=== PATIENT | female | born 1955 | race Caucasian/White ===

== ENCOUNTER 2020-06-15 13:24 | Outpatient (REF) | payer MEDICARE, MEDICAID, SELFPAY | END 2020-06-15 13:25 | disposition home or self-care (01) | LOC: HO.HMGCLDS 13:24 | PROVIDERS: Visit Provider Internal Medicine | DX: Z20.822 Contact with and (suspected) exposure to COVID-19 (principal) | CPT/HCPCS: C9803; U0003; U0005 ==

== ENCOUNTER 2020-08-13 16:14 | Observation (INO) | payer MEDICARE, MEDICAID, SELFPAY ==
--- NOTE | ~2020-08-13 | MR_ITS ---
EXAMINATION: MR BRAIN WITHOUT AND WITH CONTRAST CLINICAL INFORMATION: Evaluation for abnormal gait. History of brain cancer. COMPARISON: Head CT August 13, 2020. Brain MRI July 09, 2015. TECHNIQUE: Multiplanar, multisequence imaging of the brain was performed before and after the intravenous administration of 7 mL of Gadavist. FINDINGS: There is redemonstration of postoperative findings of left pterional craniotomy for extra-axial mass resection. A 1.1 cm homogeneously enhancing extra-axial mass is seen subjacent to the craniotomy along the left inferior temporal convexity compatible with residual/recurrent tumor at this locale, best seen on series 9 image 11/30. T2/FLAIR hyperintensity within the left frontal lobe, operculum, and temporal lobes compatible with encephalomalacia and gliosis. There is mild ex vacuo dilatation of the left lateral ventricle. There is no acute infarction, hemorrhage, or extra-axial fluid collection. Developmental venous anomalies are seen in the right inferior frontal lobe and in the left posterior temporal lobe. No hydrocephalus is seen. The major arterial flow voids are preserved at the skull base. The orbital contents appear normal. Mild paranasal sinus mucosal thickening is noted. MR/MR head/brain wo/w con IMPRESSION: Postoperative findings of left pterional craniotomy for reported tumor resection. A 1.1 cm homogeneously enhancing lesion is seen along the craniotomy at the left temporal convexity compatible with residual/recurrent meningioma. No acute intracranial abnormality is seen.
--- NOTE | ~2020-08-13 | CT_ITS ---
EXAMINATION: CT HEAD WITHOUT CONTRAST CLINICAL INFORMATION: History of brain tumor. Headache, dizziness. COMPARISON: 09/03/2018 TECHNIQUE: Contiguous axial imaging was performed from the skull base to vertex without intravenous administration of contrast. This CT examination was performed using dose optimization techniques as appropriate, variously including the following: *Automated exposure control. *Adjustment of mA and/or kV according to patient size (this includes techniques or standardized protocols for targeted exams where dose is matched to indication/reason for exam; i.e. extremities or head). *Use of iterative reconstruction technique. DLP: 736 mGy-cm FINDINGS: Redemonstrated is prior left frontal craniotomy, with encephalomalacia in the left frontotemporal lobes, status post previous tumor resection. Redemonstrated is expected dilatation of the left lateral ventricle. No evidence of acute intracranial hemorrhage. No extra-axial fluid collections identified. No territorial infarction. No abnormal mass effect or midline shift is seen. Kuzo-rs-[id number] matter differentiation is otherwise well preserved. No evidence of hydrocephalus. The mastoid air cells and visualized portions of the paranasal sinuses are well aerated. CT/CT head/brain wo con IMPRESSION: 1. Postsurgical changes with encephalomalacia from prior tumor resection in the left frontotemporal lobes. 2. No evidence of acute intracranial hemorrhage or territorial infarction.
--- NOTE | ~2020-08-13 | XR_ITS ---
EXAMINATION: CHEST 2 VIEWS CLINICAL INFORMATION: l sided cp . COMPARISON: 10/03/2011. TECHNIQUE: PA and lateral views of the chest obtained. FINDINGS: The lungs are hyperexpanded. No focal infiltrate, effusion, edema, or pneumothorax. Cardiac and mediastinal silhouettes are within normal limits for technique. No acute bony abnormality seen XR/XR chest 2V IMPRESSION: No evidence of acute disease compared to 10/03/2011
[2020-08-13 16:22] VITALS: BP 153/53; PULSE 65; RESP 16; TEMP 36.5; O2SAT 96; BMI 27.3
[2020-08-13 18:00] VITALS: BP 166/70; PULSE 61; RESP 14; O2SAT 99
--- NOTE | 2020-08-13 18:15 | PC.NURSE ---
Per son, pt was diagnosed with a brain tumor in 2016 which was removed here. Since then, she has been seeing a neurologist with yearly CT scans. Pt was unable to see the neurologist during due to restrictions so has not had a CT scan for 2 years. Pt developed a headache with difficulty walking/balance issues and difficulty finding her words over this weekend. Pt was able to make an appointment with her neurologist and neurosurgeon for this upcoming thursday and but today the pain and disorientation was increasing in intensity and therefore presents to the ED today with 9/10 pain in her left temporal area.
--- NOTE | 2020-08-13 18:32 | ECG_ITS ---
Test Reason : left sided cp Blood Pressure : / mmHG Vent. Rate : 055 BPM Atrial Rate : 055 BPM P-R Int : 140 ms QRS Dur : 080 ms QT Int : 434 ms P-R-T Axes : 008 081 043 degrees QTc Int : 415 ms Sinus bradycardia Otherwise normal ECG When compared with ECG of 03-OCT-2011 20:50, No significant change was found Referred By: Mila Hernandez Electronically Signed By:PRANAV ELLIS MD
[2020-08-13 18:58] LABS: MANUAL DIFF FLAG NO
[2020-08-13] MEDS: Morphine Sulfate 2 MG/ML CARTRIDGE IVPUSH (19:01)
[2020-08-13 19:08] LABS: Basophils Percent Auto 0.2 % (0-2); Eosinophils Absolute Auto 0.1 X10*3/uL (0.0-0.4); Eosinophils Percent Auto 0.9 % (0-4); Hematocrit 39.5 % (37-47); Hemoglobin 12.8 g/dl (12.0-16.0); Imm Gran Abs Auto 0.06 X10*3/uL (0.00-0.03); Imm Gran Pct Auto 0.9 % (0.0-0.4); Lymphocytes Absolute Auto 1.7 X10*3/uL (1.2-4.9); Lymphocytes Percent Auto 25.3 % (20-40); Mean Corpuscular HGB Conc 32.4 g/dl (31.0-35.0); Mean Corpuscular Volume 95.6 fL (80-98); Mean Platelet Volume 10.1 fL (9.4-12.3); Monocytes Absolute Auto 0.7 X10*3/uL (0.1-1.2); Monocytes Percent Auto 11.4 % (2-11); Neutrophils Percent Auto 61.3 % (45-73); Platelet Count 181 X10*3/uL (160-400); Red Blood Count 4.13 X10*6/uL (4.20-5.50); White Blood Count 6.5 X10*3/uL (4.8-10.8)
[2020-08-13 19:15] LABS: Glucose Urine UA NEG (NEG); Leukocyte Esterase Urine NEG (NEG); Nitrite Urine NEG (NEG); Specific Gravity - Urine <= 1.005 (1.005-1.025); Urine Blood NEG (NEG); Urine Ketones NEG (NEG); Urine Protein NEG (NEG-TRACE)
[2020-08-13 19:16] LABS: Appearance Urine CLEAR; Color Urine YELLOW
[2020-08-13 19:30] LABS: Anion Gap 10 (12-20); Blood Urea Nitrogen 11 mg/dL (9-16); Calcium 8.7 mg/dL (8.4-10.2); Carbon Dioxide 27 mmol/L (22-29); Chloride 109 mmol/L (96-108); Creatinine Clr Calc Pharmacy 66.4; Estimated Glomerular Filt Rate > 60; Glucose Random 87 mg/dL (60-115); Magnesium 2.3 mg/dL (1.6-2.6); Potassium 4.4 mmol/L (3.3-5.1); Sodium 142 mmol/L (135-145)
[2020-08-13 19:37] LABS: Troponin-I High Sensitivity < 3.5 ng/L (<3.5-17.0)
[2020-08-13 20:00] VITALS: BP 147/51; PULSE 99; RESP 14; O2SAT 99
--- NOTE | 2020-08-13 20:00 | ED_ITS ---
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 Bautista, rheumatoid arthritis, fibromyalgia here with complaints of headache intermittent for the last month. Her son who provides most of the history for the patient the patient has been followed by both Neurology and Neurosurgery yearly for CT scan. However, last year d/t COVID patient was in [place] and unable to leave d/t the borders being closed. Therefore she was not seen last year and did not have the CT scan. They have the specialist and they have an appointment on Thursday with Dr. Casey and an appointment on with Dr. Bautista. The pain has been getting worse in the last week. The son does tell me that she has been prescribed at amitriptyline for similar pain however ran out of the medication while she was in [place]. In addition, in the last week the patient has had an unsteady gait, been forgetful and confused at times and the son feels the patient's speech is slurred. She is also complaining of some left breast discomfort which she has had for quite some time. She has an upcoming mammogram in September for evaluation. No shortness of breath, cough, fevers, chills. No vision changes, dizziness. Patient is arabic speaking only and family wishes to interpret for her. Offered custom applicator but declined. Related Data Allergies Allergy/AdvReac Type Severity Reaction Status Date / Time leflunomide [From ARAVA] Allergy Unknown UNK Unverified 11/24/19 18:21 Review of Systems Review of Systems: Yes all other systems are reviewed and are negative Constitutional: Constitutional: Reports no additional constitutional complaints, Denies body ache(s), Denies chills, Denies fever(s), Reports headache(s) and Denies weakness Eyes: Eyes: Reports no additional eye complaints and Denies change in vision ENT: Reports system reviewed and no additional complaints, except as documented, Denies dizziness, Reports headache(s), Denies nasal congestion, Denies nasal discharge and Denies neck pain Cardiovascular: Cardiovascular: Reports no additional cardiovascular complaints, Denies chest pain, Denies leg edema and Denies dyspnea Comments: +breast pain Respiratory: Respiratory: Reports no additional respiratory complaints, Denies cough and Denies dyspnea Gastrointestinal: Gastrointestinal: Reports no additional gastrointestinal complaints, Denies abdominal pain, Denies diarrhea, Denies nausea and Denies vomiting Genitourinary: Genitourinary: Reports no additional female genitourinary complaints and Denies urinary incontinence Musculoskeletal: Musculoskeletal: Reports no additional musculoskeletal complaints, Reports abnormal gait, Denies back pain, Denies arthralgias, Denies joint swelling, Denies neck pain, Denies numbness and Denies tingling Integumentary/Breasts: Skin/Breast: Reports system reviewed and no additional complaints, except as docu and Denies rash Neurologic: Reports system reviewed and no additional complaints, except as documented, Reports abnormal gait, Denies dizziness, Reports headache(s), Denies numbness, Denies tingling and Denies weakness PMFSH Past Medical History Attestation statement: The following information was validated with the patient. Source: old records reviewed and nursing notes reviewed Medical History Brain tumor Fibromyalgia Rheumatoid arthritis Social History Social History Alcohol intake: current Alcohol intake frequency: holidays/special occasions only Patient Tobacco Use Status: Never used Tobacco Use of substances other than those prescribed or required for medical reasons: No Advance Directives: No Advance Directives Information Provided: Yes Physical Exam Vital Signs: Vital Signs: Last Vital Signs Temp 97.7 F 08/13/20 16:22 Pulse 99 08/13/20 20:00 Resp 14 08/13/20 20:00 BP 147/51 H 08/13/20 20:00 Pulse Ox 99 08/13/20 20:00 Body Mass Index 27.3 Const: General: cooperative, healthy appearing, comfortable and no acute distress Orientation/consciousness: patient oriented x3 Limitations: no limitations HENMT: Head: Yes normal to inspection Ears: hearing grossly normal bilaterally and TM's normal bilaterally General nose exam: Normal external nose present Face and sinus: Yes normal facial exam Mouth: Normal oral and palatal mucosa present Throat: Yes posterior oropharynx normal, Yes tonsils normal and Yes uvula midline Eyes: General: appearance normal, both eyes and all related structures Pupils: Equal, round and reactive pupils present Neck: Neck: Yes normal visual inspection, Yes full ROM, Yes no lymphadenopathy and Yes no meningeal signs Chest: Chest palpation & inspection: normal inspection of the chest and normal palpation of entire chest wall Breast/axilla palpation: normal palpation of the breasts and no axillary lymphadenopathy Resp: Effort & Inspection: normal respiratory effort Auscultation: clear to auscultation bilaterally Cardio: Rate: regular rate Rhythm: regular rhythm Peripheral pulses: Peripheral pulses 2+ throughout GI: Inspection: Yes normal to inspection Palpation (GI): Soft to palpation and nontender Auscultation: normal bowel sounds Back/Spine/Pelvis: Thoracic/Lumbar Spine: thoracic and lumbar spine normal to inspection Skin: General skin exam: no rashes or lesions noted Neuro: General: patient oriented x3, no meningeal signs, no focal motor deficits and normal sensation to monofilament Cranial nerves: Yes CN's II-XII intact bilaterally, Yes Equal, round and reactive pupils present, Yes Bilaterally intact EOM present, Yes Nystagmus not present, Yes Normal facial strength present and Yes Midline tongue present Cognition (Neuro): normal cognition Speech: Other speech findings present (Neuro) (normal speech) Gait exam (Neuro): Ataxic gait present Motor exam (neuro): 5/5 motor strength present throughout Sensory Exam: Normal double simultaneous stimulation for sensation Coordination: dbmlyw-br-[id number] test normal and other (heel to arteaga abnormal. unable to perform in a straight line) Extrem: General: Yes normal to inspection, Yes no pedal edema and Yes no calf tenderness NIH Stroke Scale Internal: Initial- Upon Arrival Time: 18:16 Level of Consciousness: Alert Level of Consciousness Questions: Answers both questions correctly Level of Consciousness Commands: Performs both tasks correctly Best Gaze: Normal Visual: No visual loss Facial Palsy: Normal Motor Arm (Right): No drift Motor Arm (Left): No drift Motor Leg (Right): No drift Motor Leg (Left): No drift Limb Ataxia: Present in two limbs Sensory: Normal Best Language: No aphasia Dysarthia: Normal Extinction and Inattention: No abnormality Score: 2 Course Course Course Narrative: 65 yo female with past medical history of brain tumor s/p [place] [address] Bautista here with intermittent L sided BARNEY x 1 month, now forgetful with confusion per family (?slurred speech per family) and unsteady gait x 1 week. Missed f/u last year with all providers and scheduled CT head d/t being in [place] and unable to leave d/t closed borders. On arrival A&Ox4. I do not appreciate slurred speech but difficult to assess as patient is being interpreted through family. I do appreciate limb ataxia and patient during ambulation trial is very unsteady. NIH 2 in the setting of symptoms >1 week. Not a TPA candidate. Will need CT head to eval for tumor re-occurrence, EKG/CXR/UA/labs to evaluate for additional cause of dizziness. Will provide analgesia for BARNEY. 2029-CT head shows postsurgical changes with post from prior tumor resection. No evidence of intracranial hemorrhage or infarction. No other findings on workup to explain metabolic cause. Will discuss with patient's neurologist to see if further imaging is needed. 2099-call back from Dr. Casey the patient's neurologist. Recommended admission for MRI with and without contrast. Call out to medicine to admit. 2129-Sign out to Dr Bauer who accepted admission of patient. MDM - Altered Mental Status MDM Narrative Medical decision making narrative: Electrolyte abnormality, anemia, ACS, CVA vs ICH vs space occupying lesion. Medical Records Attestation: I reviewed the patient's medical records. Lab Data Attestation: I reviewed the patient's lab results. Result diagrams: 08/13/20 18:54 08/13/20 18:54 Labs: Lab Results 08/13/20 08/13/20 08/13/20 Range/Units 18:54 18:54 18:54 WBC 6.5 (4.8-10.8) X10*3/uL RBC 4.13 L (4.20-5.50) X10*6/uL Hgb 12.8 (12.0-16.0) g/dl Hct 39.5 (37-47) % MCV 95.6 (80-98) fL MCH 31.0 (27.0-33.0) pg MCHC 32.4 (31.0-35.0) g/dl RDW 14.0 (11.0-16.0) % Plt Count 181 (160-400) X10*3/uL MPV 10.1 (9.4-12.3) fL Immature Gran % (Auto) 0.9 H (0.0-0.4) % Neut % (Auto) 61.3 (45-73) % Lymph % (Auto) 25.3 (20-40) % [place] % (Auto) 11.4 H (2-11) % Eos % (Auto) 0.9 (0-4) % Baso % (Auto) 0.2 (0-2) % Lymph # (Auto) 1.7 (1.2-4.9) X10*3/uL [place] # (Auto) 0.7 (0.1-1.2) X10*3/uL Eos # (Auto) 0.1 (0.0-0.4) X10*3/uL Baso # (Auto) 0.0 (0.0-0.2) X10*3/uL Abs Immat Gran (auto) 0.06 H (0.00-0.03) X10*3/uL Absolute Neuts (auto) 4.0 (2.0-8.3) X10*3/uL Absolute Nucleated RBC 0.000 (0.0-0.012) X10*3/uL Nucleated RBC % (auto) 0.0 (0.0-0.2) /100WBC Sodium 142 (135-145) mmol/L Potassium 4.4 (3.3-5.1) mmol/L Chloride 109 H (96-108) mmol/L Carbon Dioxide 27 (22-29) mmol/L Anion Gap 10 L (12-20) BUN 11 (9-16) mg/dL Creatinine 0.83 (0.5-1.4) mg/dL Estim Creat Clear Calc 66.4 Estimated GFR > 60 Random Glucose 87 (60-115) mg/dL Calcium 8.7 (8.4-10.2) mg/dL Magnesium 2.3 (1.6-2.6) mg/dL Troponin I High Sens < 3.5 (<3.5-17.0) ng/L Urine Color Urine Appearance Urine pH (5.0-8.0) Ur Specific [place] (1.005-1.025) Urine Protein (NEG-TRACE) MG/DL Urine Glucose (UA) (NEG) MG/DL Urine Ketones (NEG) MG/DL Urine Blood (NEG) Urine Nitrite (NEG) Ur Leukocyte Esterase (NEG) 08/13/20 Range/Units 19:02 WBC (4.8-10.8) X10*3/uL RBC (4.20-5.50) X10*6/uL Hgb (12.0-16.0) g/dl Hct (37-47) % MCV (80-98) fL MCH (27.0-33.0) pg MCHC (31.0-35.0) g/dl RDW (11.0-16.0) % Plt Count (160-400) X10*3/uL MPV (9.4-12.3) fL Immature Gran % (Auto) (0.0-0.4) % Neut % (Auto) (45-73) % Lymph % (Auto) (20-40) % [place] % (Auto) (2-11) % Eos % (Auto) (0-4) % Baso % (Auto) (0-2) % Lymph # (Auto) (1.2-4.9) X10*3/uL [place] # (Auto) (0.1-1.2) X10*3/uL Eos # (Auto) (0.0-0.4) X10*3/uL Baso # (Auto) (0.0-0.2) X10*3/uL Abs Immat Gran (auto) (0.00-0.03) X10*3/uL Absolute Neuts (auto) (2.0-8.3) X10*3/uL Absolute Nucleated RBC (0.0-0.012) X10*3/uL Nucleated RBC % (auto) (0.0-0.2) /100WBC Sodium (135-145) mmol/L Potassium (3.3-5.1) mmol/L Chloride (96-108) mmol/L Carbon Dioxide (22-29) mmol/L Anion Gap (12-20) BUN (9-16) mg/dL Creatinine (0.5-1.4) mg/dL Estim Creat Clear Calc Estimated GFR Random Glucose (60-115) mg/dL Calcium (8.4-10.2) mg/dL Magnesium (1.6-2.6) mg/dL Troponin I High Sens (<3.5-17.0) ng/L Urine Color YELLOW Urine Appearance CLEAR Urine pH 6.0 (5.0-8.0) Ur Specific [place] <= 1.005 (1.005-1.025) Urine Protein NEG (NEG-TRACE) MG/DL Urine Glucose (UA) NEG (NEG) MG/DL Urine Ketones NEG (NEG) MG/DL Urine Blood NEG (NEG) Urine Nitrite NEG (NEG) Ur Leukocyte Esterase NEG (NEG) Imaging Data CT scan - head: Attestation: I personally reviewed and interpreted this imaging study as follows: Radiologist's impression: EXAMINATION: CT HEAD WITHOUT CONTRAST CLINICAL INFORMATION: History of brain tumor. Headache, dizziness. COMPARISON: 09/03/2018 TECHNIQUE: Contiguous axial imaging was performed from the skull base to vertex without intravenous administration of contrast. This CT examination was performed using dose optimization techniques as appropriate, variously including the following: *Automated exposure control. *Adjustment of mA and/or kV according to patient size (this includes techniques or standardized protocols for targeted exams where dose is matched to indication/reason for exam; i.e. extremities or head). *Use of iterative reconstruction technique. DLP: 736 mGy-cm FINDINGS: Redemonstrated is prior left frontal craniotomy, with encephalomalacia in the left frontotemporal lobes, status post previous tumor resection. Redemonstrated is expected dilatation of the left lateral ventricle. No evidence of acute intracranial hemorrhage. No extra-axial fluid collections identified. No territorial infarction. No abnormal mass effect or midline shift is seen. Unic-wx-fwlwx matter differentiation is otherwise well preserved. No evidence of hydrocephalus. The mastoid air cells and visualized portions of the paranasal sinuses are well aerated. CT/CT head/brain wo con IMPRESSION: 1. Postsurgical changes with encephalomalacia from prior tumor resection in the left frontotemporal lobes. 2. No evidence of acute intracranial hemorrhage or territorial infarction. Chest x-ray: Attestation: I personally reviewed and interpreted this imaging study as follows: Radiologist's impression: [address] [id number] ReportSigned Patient: Vanessa PierceMR#: [id number]: [id number]:[id number]/Sex: 65 / FADM Date: 08/13/20Loc: [facility].EDAttending Dr: Ordering Physician: MILA CONRAD NP Date of Service: 08/13/20 Procedure(s): XR chest 2V Accession Number(s): [id number] cc: MILA CONRAD NP~ EXAMINATION: CHEST 2 VIEWS CLINICAL INFORMATION: l sided cp . COMPARISON: 10/03/2011. TECHNIQUE: PA and lateral views of the chest obtained. FINDINGS: The lungs are hyperexpanded. No focal infiltrate, effusion, edema, or pneumothorax. Cardiac and mediastinal silhouettes are within normal limits for technique. No acute bony abnormality seen XR/XR chest 2V IMPRESSION: No evidence of acute disease compared to 10/03/2011 ECG Data ECG #1: Attestation: I personally reviewed and interpreted this ECG as follows: ECG interpretation date: 08/13/20 ECG interpretation time: 19:12 Interpretation: Sinus bradycardia with a rate of 55, normal [place], normal QRS, normal QTC Discharge Plan Discharge Clinical Impression: Ataxia Patient Disposition: Admitted As Inpatient
--- NOTE | 2020-08-13 21:36 | PM.IMHP ---
History of Present Illness Date of Service: 08/13/20 Chief Complaint: Unsteady gait 65-year-old female with a past medical history of brain tumor, fibromyalgia, rheumatoid arthritis, history of brain tumor resection in [address] scans surveillance; presents to the hospital with chief complaint of unsteady gait. Patient reports that over the past 1 month she has been having intermittent episodes of headaches, denies any blurry visions. Denies any fever chills cough. Patient reports that she has been having unsteady gait over the past 1 week. Family also reported that her speech is slightly abnormal. Patient also become more forgetful over the past 1 week. Denies any falls. Denies any head strike. Denies any nausea vomiting or diarrhea. Denies any difficulty swallowing. Review of all other systems is negative except mentioned above ER course: Per ER team patient 0 noted to have unsteady gait, abnormal jwmgsf-wv-vgoi and yevx-ap-jdvj test. CT head showed no acute findings, chronic postsurgical changes noticed. EKG nonischemic. Troponin negative. ER team spoke to Dr. Porter from Neurology who recommended admission and MRI brain in the morning. [facility] Medical History Brain tumor Fibromyalgia Rheumatoid arthritis Social History Household Members: Children Household Members Other:: daughter Housing: Condominium Do you presently have visiting nurse or other home services: No Alcohol intake: current Alcohol intake frequency: holidays/special occasions only Patient Tobacco Use Status: Never used Tobacco service: No Meds Allergies Allergy/AdvReac Type Severity Reaction Status Date / Time leflunomide [From ARAVA] Allergy Unknown UNK Verified 08/14/20 00:58 Active Medications: Current Medications Generic Name Dose Route Start Last Admin Trade Name Freq PRN Reason Stop Dose Admin Acetaminophen 650 mg 08/13/20 21:28 Acetaminophen 325 Mg Tablet PO Q6H PRN Pain, Mild (Pain Scale 1-3) Aspirin 81 mg 08/14/20 09:00 Aspirin Enteric Coated 81 Mg Tablet. PO DAILY NAIDA Dextrose/Sodium Chloride 1,000 mls @ 100 mls/hr 08/13/20 21:30 D51/2ns IVCONT .Q10H NAIDA Magnesium Hydroxide 30 ml 08/13/20 21:28 Milk Of Magnesia 30 Ml Oral.Susp PO DAILY PRN Constipation Pharmacy Consult 1 each 08/13/20 21:15 Consult Rx Perform Med Rec MISCELLANE ONCE PRN Consult order Sodium Chloride 3 ml 08/14/20 00:00 0.9 % Sodium Chloride Flush 3 Ml Syringe IVFLUSH QSHIFT [facility] Home Medications Medication Instructions Recorded Confirmed Last Taken Type Enbrel SureClick 1 mg SUBCUT Q2W 08/13/20 08/13/20 08/06/20 History Systane (propylene glycol) 1 drp OPHTHALMIC (EYE) Q1H PRN 08/13/20 08/13/20 08/13/20 History estradiol 1 g VAGINAL 3XW 08/13/20 08/13/20 08/12/20 History folic acid 0.8 mg PO DAILY 08/13/20 08/13/20 08/12/20 History gabapentin 200 mg PO BEDTIME 08/13/20 08/13/20 08/12/20 History methotrexate sodium (PF) 25 mg SUBCUT Q7D 08/13/20 08/14/20 08/06/20 History prednisone 5 - 10 mg PO DAILY PRN 08/13/20 08/13/20 08/11/20 History Physical Exam Vital Signs and Narrative: Vital Signs: Last Vital Signs Temp 97.7 F 08/13/20 16:22 Pulse 99 08/13/20 20:00 Resp 14 08/13/20 20:00 BP 147/51 H 08/13/20 20:00 Pulse Ox 99 08/13/20 20:00 Body Mass Index 27.3 Gen: Appears be in no acute distress HEENT: NCAT, Moist mucosa. Pulmonary: Vesicular breath sounds, fair air entry CVS: Normal S1-S2 Abdomen: BS+, Soft, Nontender Extremities: Warm well perfused Neuro: Alert and awake.; moves all extremities equally. Strength and sensations intact. Unable to perform dvop-zi-ofsr test well. Slow yppjap-hg-awvq test. Results Labs CBC and Chem 7: 08/14/20 05:43 08/15/20 05:31 Labs: Laboratory Results - last 24 hr 08/13/20 08/13/20 08/13/20 18:54 18:54 18:54 MCV 95.6 MCH 31.0 MCHC 32.4 RDW 14.0 Plt Count 181 MPV 10.1 Immature Gran % (Auto) 0.9 H Neut % (Auto) 61.3 Lymph % (Auto) 25.3 [place] % (Auto) 11.4 H Eos % (Auto) 0.9 Baso % (Auto) 0.2 Lymph # (Auto) 1.7 [place] # (Auto) 0.7 Eos # (Auto) 0.1 Baso # (Auto) 0.0 Abs Immat Gran (auto) 0.06 H Absolute Neuts (auto) 4.0 Absolute Nucleated RBC 0.000 Nucleated RBC % (auto) 0.0 Anion Gap 10 L Estim Creat Clear Calc 66.4 Estimated GFR > 60 Random Glucose 87 Calcium 8.7 Magnesium 2.3 Troponin I High Sens < 3.5 Urine Color Urine Appearance Urine pH Ur Specific [place] Urine Protein Urine Glucose (UA) Urine Ketones Urine Blood Urine Nitrite Ur Leukocyte Esterase 08/13/20 19:02 MCV MCH MCHC RDW Plt Count MPV Immature Gran % (Auto) Neut % (Auto) Lymph % (Auto) [place] % (Auto) Eos % (Auto) Baso % (Auto) Lymph # (Auto) [place] # (Auto) Eos # (Auto) Baso # (Auto) Abs Immat Gran (auto) Absolute Neuts (auto) Absolute Nucleated RBC Nucleated RBC % (auto) Anion Gap Estim Creat Clear Calc Estimated GFR Random Glucose Calcium Magnesium Troponin I High Sens Urine Color YELLOW Urine Appearance CLEAR Urine pH 6.0 Ur Specific [place] <= 1.005 Urine Protein NEG Urine Glucose (UA) NEG Urine Ketones NEG Urine Blood NEG Urine Nitrite NEG Ur Leukocyte Esterase NEG Imaging Radiologist's Impressions: Impressions Chest X-Ray 08/13/20 18:32 IMPRESSION: No evidence of acute disease compared to 10/03/[address] 08/13/20 18:32 IMPRESSION: 1. Postsurgical changes with encephalomalacia from prior tumor resection in the left frontotemporal lobes. 2. No evidence of acute intracranial hemorrhage or territorial infarction. Assessment and Plan (1) Ataxia: Status: Acute 65-year-old female with a past medical history of fibromyalgia, rheumatoid arthritis, brain tumor status post resection presented to the hospital with a chief complaint of unsteady gait, slurred speech. Speech is improved. Admitted for further management. Unsteady gait: Impaired rzdy-au-nzxs test. Ataxic gait. CT head with no acute findings. Neurology recommended MRI brain in the morning. Lipid profile, TSH, hemoglobin A1c. Neurology consult Echocardiogram PT/OT Fall precautions Speech and swallow eval Aspirin MRI brain with and without contrast Chest discomfort: Improved. EKG and troponin negative. Follow-up troponin pending. All other chronic conditions, home medications will be continued DVT prophylaxis: SCD boots code status: Full code
[2020-08-13] MEDS: Dextrose 5 % and 0.45 % NaCl 1,000 ML 100 ML IVCONT (22:01)
[2020-08-13 22:06] VITALS: BP 154/55; PULSE 51; RESP 12; O2SAT 98
[2020-08-13 22:30] LABS: COVID-19 Test Negative (Negative)
--- NOTE | 2020-08-13 22:49 | PC.NURSE ---
MRI form filled out and faxed at approximately 2200 and copy placed in paper chart.
--- NOTE | 2020-08-13 23:31 | PC.NURSE ---
Hospitalist at bedside for evaluation of patient
[2020-08-14] VITALS (7 sets, daily range): BP systolic 125–185; BP diastolic 58–70; PULSE 48–59; RESP 16–20; TEMP 36.2–37.1; O2SAT 96–100; BMI 25.1
--- NOTE | 2020-08-14 01:14 | PC.NURSE ---
Pt up to floor at 0030. Initial neuro check reveals equal strength bilat lower extremities supine. Left arm minimally slow to respond/trace weakness. Does report hx of rheumatoid arthritis. Steady gait to bathroom. Pt still reports left sided headache. Passed nursing swallow evaluation. No facial droop. Per family and patient, crushes medications at baseline r/t rheumatoid arthritis. A&Ox4 at this time. Will continue to monitor
[2020-08-14 06:19] LABS: MANUAL DIFF FLAG NO
[2020-08-14 06:26] LABS: Eosinophils Absolute Auto 0.1 X10*3/uL (0.0-0.4); Eosinophils Percent Auto 1.8 % (0-4); Hematocrit 38.2 % (37-47); Hemoglobin 12.2 g/dl (12.0-16.0); Imm Gran Abs Auto 0.02 X10*3/uL (0.00-0.03); Imm Gran Pct Auto 0.5 % (0.0-0.4); Lymphocytes Absolute Auto 0.9 X10*3/uL (1.2-4.9); Mean Corpuscular HGB Conc 31.9 g/dl (31.0-35.0); Mean Corpuscular Hemoglobin 30.7 pg (27.0-33.0); Mean Platelet Volume 10.3 fL (9.4-12.3); Monocytes Absolute Auto 0.5 X10*3/uL (0.1-1.2); Monocytes Percent Auto 13.1 % (2-11); Neutrophils Absolute Auto 2.5 X10*3/uL (2.0-8.3); Neutrophils Percent Auto 62.6 % (45-73); Platelet Count 172 X10*3/uL (160-400); Red Blood Count 3.98 X10*6/uL (4.20-5.50); Red Cell Distribution Width 13.8 % (11.0-16.0)
[2020-08-14] MEDS: Dextrose 5 % and 0.45 % NaCl 1,000 ML 100 ML IVCONT (06:30)
[2020-08-14 06:39] LABS: Estimated Average Glucose 114 mg/dL; Hemoglobin A1c % 5.6 %
[2020-08-14 06:46] LABS: Glucose, Whole Blood 108 mg/dL (60-115)
[2020-08-14 07:04] LABS: Anion Gap 10 (12-20); Blood Urea Nitrogen 7 mg/dL (9-16); Calcium 8.3 mg/dL (8.4-10.2); Carbon Dioxide 27 mmol/L (22-29); Chloride 110 mmol/L (96-108); Creatinine Clr Calc Pharmacy 72.7; Estimated Glomerular Filt Rate > 60; Glucose Random 90 mg/dL (60-115); Magnesium 2.1 mg/dL (1.6-2.6); Potassium 3.6 mmol/L (3.3-5.1); Sodium 143 mmol/L (135-145)
[2020-08-14 07:05] LABS: Cholesterol 159 mg/dL; HDL Cholesterol 47 mg/dL; LDL Cholesterol Calculated 96 mg/dl; Triglycerides 83 mg/dL
[2020-08-14 07:24] LABS: Thyroid Stimulating Hormone 1.22 uIU/mL (0.32-4.0)
[2020-08-14] MEDS: 0.9 % Sodium Chloride Flush 3 ML SYRINGE IVFLUSH ×3 (09:23→23:41)
[2020-08-14] MEDS: Aspirin 81 MG TAB.CHEW PO (09:23)
[2020-08-14] MEDS: Acetaminophen 325 MG TABLET 650 MG PO (09:23)
--- NOTE | 2020-08-14 12:09 | MHC.CM.PN ---
met with pt and family pt lives with braydon daughter son lives near by pt had no servceis prior to admission,pt is recpmmending acute rehab family has chosen [facility] referral will be made
--- NOTE | 2020-08-14 12:28 | MHC.SL.SWA ---
Speech Pathologist Impression: Oralpharyngeal Dysphagia Risk of Aspiration Due to: Dysphasia Diet Status: Downgrade Liquid Consistency and Strategies for Safe Swallow: Liquid Intake Recommendation: [place] Thick Liquid Intake Strategies: Small Sips Solid Food Consistency: Dietary Recommendations: Grnd/Mech Altered (NDD2) Additional Modifications to Solid Foods: Moisten solids with sauces and gravies for ease of mastication. Oral Medication Intake: Crushed with Puree Compensatory Strategies and Precautions to be Taken for Safe Swallow: Sitting Upright (90 deg) Liquids from Cup Small Bites and Sips Alternate Liquids/Solids Supervision While Eating and Drinking for Safe Swallow: Intermittent Supervision Foods to Avoid: Swallowing Recommended Treatments: Compens. Strategy Educat. Recommendation for Speech: Inpatient Speech Therapy Comment: moisten solids with sauces and gravies for ease of mastication. Frequency/Duration: Date Range for Service Req: Timeline to reassess: Tube Mounter Clinican/Clinical Fellow: Yes: Suzanna Weinstein M.A., CF-ELECTRICAL TECH/PROJECT MANAGER Supervisory Statement: I have reviewed and agree with the student/clinical fellow's documentation: Speech Language Pathologist:
--- NOTE | 2020-08-14 14:47 | P.PNIM_ITS ---
Subjective Subjective Date of Service: 08/14/20 Interval History: the patient was seen and evaluated this morning Laying in bed, complaining of headache and feeling dizzy No reported nausea, double vision Denies any fever, chills or shortness of breath No reported other overnight events. Systemic review: No fever, chills but feels generalized weakness No chest pain, palpitation No shortness of breath or coughing No abdominal pain, nausea or vomiting No urinary symptoms No any rash or wounds Physical Exam Vital Signs: Vital Signs: Last Vital Signs Temp 97.6 F 08/14/20 12:00 Pulse 58 08/14/20 12:00 Resp 16 08/14/20 12:00 BP 148/68 H 08/14/20 12:00 Pulse Ox 98 08/14/20 12:00 Body Mass Index 25.1 Const: Other: Constitutional : Alert, oriented, not in distress Neck : Normal inspection, Supple Cardiovascular : RRR, S1 S2, no lower extremity edema Respiratory : Good bilateral air entry, no crackles, wheezes or rhonchi Gastrointestinal: soft, lax, Normal bowel sounds, Non tender Skin : Warm/Dry, No rash Neurological : Alert & oriented x3, No focal deficit, normal cranial nerve examination, good power upper and lower extremities bilaterally, cerebellar exam within normal as no nystagmus but possibly heel to arteaga mildly abnormal. Objective Data Current Medications Generic Name Dose Route Start Last Admin Trade Name Freq PRN Reason Stop Dose Admin Acetaminophen 650 mg 08/13/20 21:28 08/14/20 09:23 Acetaminophen 325 Mg Tablet PO 650 mg Q6H PRN Administration Pain, Mild (Pain Scale 1-3) Artificial Tears 2 drop 08/14/20 14:23 Artificial Tears 15 Ml Drops EYE-BOTH Q4H PRN Dry Eyes Aspirin 81 mg 08/14/20 09:00 08/14/20 09:23 Aspirin 81 Mg Tab.Chew PO 81 mg DAILY NAIDA Administration Gabapentin 200 mg 08/14/20 21:00 Gabapentin 100 Mg Capsule PO BEDTIME NAIDA Magnesium Hydroxide 30 ml 08/13/20 21:28 Milk Of Magnesia 30 Ml Oral.Susp PO DAILY PRN Constipation Methotrexate 25 mg 08/14/20 14:23 Methotrexate Sodium 125 Mg/5 Ml Syringe IM 08/14/20 14:24 ONCE ONE Pharmacy Consult 1 each 08/13/20 21:15 Consult Rx Perform Med Rec MISCELLANE ONCE PRN Consult order Sodium Chloride 3 ml 08/14/20 00:00 08/14/20 09:23 0.9 % Sodium Chloride Flush 3 Ml Syringe IVFLUSH 3 ml QSHIFT [facility] Administration Labs CBC & Chem 7: 08/14/20 05:43 08/14/20 05:43 Assessment and Plan (1) Ataxia: Status: Acute Assessment and Plan: 65-year-old female with a past medical history of fibromyalgia, rheumatoid arthritis, brain tumor status post resection presented to the hospital with a chief complaint of unsteady gait, slurred speech. Speech is improved. Admitted for further management. Unsteady gait Partially abnormal [id number] test which could be contributed to arthritis Reported Ataxic gait CT head with no acute findings MRI showing 1.1 cm homogeneously enhancing lesion seen along the craniotomy at the left temporal convexity compatible with residual/recurrent meningioma. Pending neurology evaluation Lipid profile, TSH, hemoglobin A1c within normal Pending Echocardiogram PT/OT Fall precautions Speech and swallow eval Continue Aspirin Chest discomfort Improved EKG and troponin negative Rheumatoid arthritis To give p.o. methotrexate as IM stat use in the medical floor continue folic acid DVT prophylaxis: SCD boots or or Dispo, patient could be ready to discharge tomorrow, family preferred to take her home with [facility]NA. She is accepted at facility though.
--- NOTE | 2020-08-14 15:25 | MHC.CM.PN ---
pt accepted at [facility] ,family undeceided about taking pt home vs [facility] they will let us know in the am
--- NOTE | 2020-08-14 17:12 | P.CNNE_ITS ---
History of Present Illness Data of Consult Service Date: 08/14/20 Primary Care Provider: Diane Ldad MD HPI Reason for consult: Left-sided headache for 2 months. Dizziness and unsteadiness This is a 65-year-old woman who has recently returned from [place]. She has a past history of for resection of a left frontal meningioma about [address] scan and MRIs have shown postoperative changes and the MRI on this admission shows a residual tumor of 1 cm relatively flat without mass effect. No other abnormalities noted. The patient came in with two-month history of steady headache on the left side of the head which was not relieved by Tylenol, but has subsided. Right now. In the past she was being treated with amitriptyline 10 mg at bedtime, which helped headaches but she's been out of it for over a year. She also gets a little confused and unsteady when she walks. She is currently living with her daughter. She gets dizzy upon walking. There is no vertigo. She has no lateralized weakness or numbness. Review of Systems Eyes: Eyes: Reports no additional eye complaints ENT: Reports system reviewed and no additional complaints, except as documented and Reports Normal hearing present Cardiovascular: Cardiovascular: Reports no additional cardiovascular complaints Respiratory: Respiratory: Reports no additional respiratory complaints Gastrointestinal: Gastrointestinal: Reports no additional gastrointestinal complaints Musculoskeletal: Musculoskeletal: Reports no additional musculoskeletal complaints Integumentary/Breasts: Skin/Breast: Reports system reviewed and no additional complaints, except as docu Neurologic: Reports as per HPI and Reports Normal hearing present Psychiatric: Psychiatric: Reports as per HPI Endocrine: Endocrine: Reports no additional endocrine complaints Hematologic/Lymphatic: Hematologic/Lymphatic: Reports no additional hematologic/lymphatic complaints Allergic/Immunologic: Allergic/Immunologic: Reports no additional allergic/immunologic complaints [facility] Past Medical History Medical History Brain tumor Fibromyalgia Rheumatoid arthritis Social History Social History Household Members: Children Household Members Other:: daughter Housing: Condominium Do you presently have visiting nurse or other home services: No Alcohol intake: current Alcohol intake frequency: holidays/special occasions only Patient Tobacco Use Status: Never used Tobacco service: No Meds Allergies Allergy/AdvReac Type Severity Reaction Status Date / Time leflunomide [From ARAVA] Allergy Unknown UNK Verified 08/14/20 00:58 Active Medications: Current Medications Generic Name Dose Route Start Last Admin Trade Name Freq PRN Reason Stop Dose Admin Acetaminophen 650 mg 08/13/20 21:28 08/14/20 09:23 Acetaminophen 325 Mg Tablet PO 650 mg Q6H PRN Administration Pain, Mild (Pain Scale 1-3) Artificial Tears 2 drop 08/14/20 14:23 Artificial Tears 15 Ml Drops EYE-BOTH Q4H PRN Dry Eyes Aspirin 81 mg 08/14/20 09:00 08/14/20 09:23 Aspirin 81 Mg Tab.Chew PO 81 mg DAILY NAIDA Administration Gabapentin 200 mg 08/14/20 21:00 Gabapentin 100 Mg Capsule PO BEDTIME [facility] Magnesium Hydroxide 30 ml 08/13/20 21:28 Milk Of Magnesia 30 Ml Oral.Susp PO DAILY PRN Constipation Pharmacy Consult 1 each 08/13/20 21:15 Consult Rx Perform Med Rec MISCELLANE ONCE PRN Consult order Sodium Chloride 3 ml 08/14/20 00:00 08/14/20 09:23 0.9 % Sodium Chloride Flush 3 Ml Syringe IVFLUSH 3 ml QSHIFT NAIDA Administration Home Medications Medication Instructions Recorded Confirmed Last Taken Type amitriptyline 10 mg PO BEDTIME 08/13/20 08/13/20 08/12/20 History estradiol 1 g VAGINAL 3XW 08/13/20 08/13/20 08/12/20 History etanercept [Enbrel SureClick] 1 mg SUBCUT Q2W 08/13/20 08/13/20 08/06/20 History folic acid 0.8 mg PO DAILY 08/13/20 08/13/20 08/12/20 History gabapentin 200 mg PO BEDTIME 08/13/20 08/13/20 08/12/20 History methotrexate sodium (PF) 25 mg SUBCUT Q7D 08/13/20 08/14/20 08/06/20 History peg 400-propylene glycol [Systane 1 drp OPHTHALMIC (EYE) Q1H PRN 08/13/20 08/13/20 08/13/20 History (propylene glycol)] prednisone 5 - 10 mg PO DAILY PRN 08/13/20 08/13/20 08/11/20 History Physical Exam Vital Signs: Vital Signs: Last Vital Signs Temp 98.3 F 08/14/20 15:24 Pulse 59 08/14/20 15:24 Resp 18 08/14/20 15:24 BP 128/61 08/14/20 15:24 Pulse Ox 99 08/14/20 15:24 Body Mass Index 25.1 Const: General: cooperative, comfortable, no acute distress, well developed, alert and awake Nutritional Appearance: well nourished Orientation/consciousness: oriented to person, oriented to place and oriented to time Limitations: no limitations HENMT: Head: Yes normal to inspection, Yes normocephalic and Yes atraumatic Ears: hearing grossly normal bilaterally General nose exam: Normal external nose present Face and sinus: Yes normal facial exam Mouth: Normal oral and palatal mucosa present Eyes: General: appearance normal, both eyes and all related structures Visual Garcia: normal visual garcia by confrontation Alignment and Position: alignment normal Periorbital: periorbital findings normal Eyelids: Yes ey elids normal Conjunctivae: conjunctivae normal Sclerae: sclerae normal Corneas: corneas normal Pupils: Equal, round and reactive pupils present and Pupil accommodation reflex normal EOM: EOMs intact bilaterally Direct Ophthalmoscopy: normal light reflex Neck: Neck: Yes normal visual inspection, Yes full ROM and Yes no meningeal signs Thyroid: Thyroid normal Carotids: normal carotid upstroke and bounding pulses Chest: Chest palpation & inspection: normal inspection of the chest Resp: Effort & Inspection: normal respiratory effort Auscultation: clear to auscultation bilaterally Cardio: Rate: regular rate Rhythm: regular rhythm Heart sounds: S1 normal heart sound present and S2 normal heart sound present Peripheral pulses: Peripheral pulses 2+ throughout GI: Inspection: Yes normal to inspection Percussion: Yes normal to percussion Auscultation: normal bowel sounds Rectal Exam - Female: deferred Back/Spine/Pelvis: Cervical Spine: normal cervical lordosis and cervical ROM normal Thoracic/Lumbar Spine: thoracic and lumbar spine normal to inspection Skin: General skin exam: no rashes or lesions noted Neuro: General: oriented to person, oriented to place, oriented to time, gait normal, tone normal, moves all extremities, Normal light touch and pain sensation, no meningeal signs, no focal motor deficits, CN's II-XI intact bilaterally, normal sensation to monofilament and deep tendon reflexes 2+ bilaterally Cranial nerves: Yes CN's II-XII intact bilaterally, Yes Equal, round and reactive pupils present, Yes Bilaterally intact EOM present, Yes Nystagmus not present, Yes Normal facial strength present, Yes Midline tongue present, Yes Normal gag reflex present, Yes Symmetric palate elevation present, Yes Normal hearing present and Yes Ability to bilaterally rotate head present Cognition (Neuro): normal cognition Speech: Other speech findings present (Neuro) Gait exam (Neuro): Normal gait present Motor exam (neuro): 5/5 m otor strength present throughout, Pronator motor function not present, no tremor noted, no asterixis, Motor fasciculations not present, Normal motor muscle tone present throughout and Motor abnormalities not present Sensory Exam: Bilaterally intact graphesthesia Deep tendon reflexes (DTR's): Right triceps reflex intensity grade: 2+, Left triceps reflex intensity grade: 2+, Rt Biceps (C5, C6): 2+, Left biceps reflex intensity grade: 2+, Right brachioradialis reflex intensity grade: 2+, Left brachioradialis reflex intensity grade: 2+, Right patellar reflex intensity grade: 2+, Left patellar reflex intensity grade: 2+, Right ankle reflex intensity grade: 2+ and Left ankle reflex intensity grade: 2+ Plantar Reflex Responses: downgoing: right, left and bilateral Coordination: [id number] test normal, jrdo-no-nmes test normal, tandem gait normal and Romberg test negative Pupils: Normal pupillary reactivity/response: bilateral Extrem: General: Yes normal to inspection, Yes normal exam except as noted and Yes no pedal edema Psych: Appearance: grossly normal Mental Status: mental status grossly normal Speech and movement: Normal speech and movement present and Clear speech present Affect: normal affect Attitude: cooperative Thought process: Normal thought process present Results Labs CBC & Chem 7: 08/14/20 05:43 08/14/20 05:43 Labs: Short CBC 08/13/20 08/14/20 Range/Units 18:54 05:43 WBC 6.5 4.0 L (4.8-10.8) X10*3/uL Hgb 12.8 12.2 (12.0-16.0) g/dl Hct 39.5 38.2 (37-47) % Plt Count 181 172 (160-400) X10*3/uL BMP 08/13/20 08/14/20 18:54 05:43 Sodium 142 143 Potassium 4.4 3.6 Chloride 109 H 110 H Carbon Dioxide 27 27 BUN 11 7 L Creatinine 0.83 0.73 Calcium 8.7 8.3 L Urine 08/13/20 Range/Units 19:02 Urine Color YELLOW Urine Appearance CLEAR Urine pH 6.0 (5.0-8.0) Ur Specific [place] <= 1.005 (1.005-1.025) Urine Protein NEG (NEG-TRACE) MG/DL Urine Glucose (UA) NEG (NEG) MG/DL Assessment and Plan (1) Tension type headache: Status: Acute Start amitriptyline 10 mg at bedtime for headache prophylaxis. (2) Dizziness: Status: Acute Check for orthostatic hypotension (3) Meningioma: Status: Acute Small residual meningioma without mass effect Procedures Date of Service Date of Service: 08/14/20
--- NOTE | 2020-08-14 19:14 | PC.NURSE ---
Pt refused PO methotrexate this evening. Pt stated that 10 pills would be too many to swallow whole; pt normally takes all pills crushed. Pt stated that she will take SQ methotrexate tomorrow at home once d/c'ed. Son as scientific database curator.
[2020-08-14] MEDS: Amitriptyline HCl 10 MG TABLET PO (20:02)
[2020-08-14] MEDS: Gabapentin 100 MG CAPSULE 200 MG PO (20:02)
[2020-08-15] VITALS (7 sets, daily range): BP systolic 129–148; BP diastolic 59–72; PULSE 51–72; RESP 16–20; TEMP 36.4–37; O2SAT 97–99
[2020-08-15 06:51] LABS: Anion Gap 8 (12-20); Blood Urea Nitrogen 11 mg/dL (9-16); Calcium 8.6 mg/dL (8.4-10.2); Carbon Dioxide 28 mmol/L (22-29); Chloride 111 mmol/L (96-108); Creatinine Clr Calc Pharmacy 67.2; Estimated Glomerular Filt Rate > 60; Glucose Random 89 mg/dL (60-115); Potassium 4.2 mmol/L (3.3-5.1); Sodium 143 mmol/L (135-145)
[2020-08-15] MEDS: Aspirin 81 MG TAB.CHEW PO (07:17)
[2020-08-15] MEDS: Folic Acid 1 MG TABLET PO (07:17)
[2020-08-15] MEDS: 0.9 % Sodium Chloride Flush 3 ML SYRINGE IVFLUSH (07:18)
--- NOTE | 2020-08-15 11:07 | MHC.CM.PN ---
pt has decieded on going home with pt rather than [facility] oneal notified of dc
--- NOTE | 2020-08-15 11:48 | MHC.CM.PN ---
obs notice given to faMILY
--- NOTE | 2020-08-15 11:54 | PM.DS ---
DS: Providers Provider Date of Service: 08/15/20 Date of admission: 08/13/20 21:26 Primary care physician: Diane Ladd MD Consults: 08/13/20 21:29 Consult to Neurology Routine Consulting Provider: Tr Casey Reason for consultation: Unsteady gait; ?CVA; DS: Diagnosis Discharge Diagnosis (1) Tension type headache: Status: Acute (2) Dizziness: Status: Acute (3) Meningioma: Status: Acute DS: Medications Discharge Medications Home Medications: Home Medications Medication Instructions Recorded Confirmed Enbrel SureClick 1 mg SUBCUT Q2W 08/13/20 08/13/20 Systane (propylene glycol) 1 drp OPHTHALMIC (EYE) Q1H PRN 08/13/20 08/13/20 estradiol 1 g VAGINAL 3XW 08/13/20 08/13/20 folic acid 0.8 mg PO DAILY 08/13/20 08/13/20 gabapentin 200 mg PO BEDTIME 08/13/20 08/13/20 methotrexate sodium (PF) 25 mg SUBCUT Q7D 08/13/20 08/14/20 prednisone 5 - 10 mg PO DAILY PRN 08/13/20 08/13/20 Previous Rx's Medication Instructions Recorded acetaminophen 650 mg PO Q6H PRN #0 tab 08/15/20 amitriptyline 10 mg PO BEDTIME #30 tab 08/15/20 aspirin 81 mg PO DAILY #0 tab 08/15/20 DS: Summary Hospital Course Hospital Course: patient was admitted for headaches, she was seen by neurology who recommended restarting amitriptyulline 10mg at bedtime. her symptoms improved with tylenol and asa and can be continued for abortive therapy. Time Spent with Patient Time attestation: Total time spent providing and/or coordinating discharge services: Discharge coordination time: Greater than 30 minutes Quality: Stroke Does the patient have a stroke diagnosis?: No Pt Provided Written Stroke Discharge Instructions: Patient given written information Physical Exam Vital Signs: Vital Signs: Last Vital Signs Temp 97.6 F 08/15/20 11:18 Pulse 70 08/15/20 11:18 Resp 16 08/15/20 11:18 BP 129/59 L 08/15/20 11:18 Pulse Ox 98 08/15/20 11:18 Body Mass Index 25.1 General: AO X 3, no acute distress Resp: CTA bilateral CVS: S1,S2,RRR GI: soft, non tender, non distended Neuro: motor grossly intact Psych: appropriate affect DS: Data Data Completed and Pending Labs on day of discharge: Laboratory Results - last 24 hr 08/15/20 05:31 Sodium 143 Potassium 4.2 Chloride 111 H Carbon Dioxide 28 Anion Gap 8 L BUN 11 D Creatinine 0.79 Estim Creat Clear Calc 67.2 Estimated GFR > 60 Random Glucose 89 Calcium 8.6 Discharge Plan Discharge Patient Disposition: Home Health Service Discharge Diagnosis: migraine Referrals: [facility] nurses [Other] - 1 Week Diane Ladd MD [Primary Care Provider] - 1 Week Discharge Medications: New acetaminophen 325 mg Tablet 650 mg PO Q6H PRN (Reason: Pain, Mild (Pain Scale 1-3)) Qty: 0 RF: 0 aspirin 81 mg Tablet,Chewable 81 mg PO DAILY Qty: 0 RF: 0 Continued prednisone 5 mg tablet 5 - 10 mg PO DAILY PRN (Reason: Inflammation) RF: 0 gabapentin 100 mg capsule 200 mg PO BEDTIME RF: 0 estradiol 0.01 % (0.1 mg/gram) cream 1 g vaginal 3XW RF: 0 methotrexate sodium (PF) 25 mg/mL solution 25 mg subcut Q7D RF: 0 Enbrel SureClick 50 mg/mL (1 mL) pen injector 1 mg subcut Q2W RF: 0 folic acid 400 mcg Tablet 0.8 mg PO DAILY RF: 0 Systane (propylene glycol) 0.4-0.3 % Drops 1 drp OPHTHALMIC (EYE) Q1H PRN (Reason: Dry Eyes) RF: 0 amitriptyline 10 mg tablet 10 mg PO BEDTIME Qty: 30 RF: 0 Discharge Orders: Discharge Order (Routine); Ordered 08/15/20 Ordered By: Yevgeniy Romero Diet: advance to usual diet Activity on Discharge: As tolerated Stand Alone Forms: Patient Portal Discharge page Care Plan Goals: prevent migraines Health Concerns: migraines Plan of Treatment: amitriptylline, tylenol, asa, follow up neuro Assessment: see above Discharge Date/Time: 08/15/20 13:50
== END 2020-08-15 13:50 | disposition home health service (06) ==
LOC: HO.ED 21:28 → HO.IMC 08-14 07:26
PROVIDERS: Nurse Practitioner Family; Student in an Organized Health Care Education/Training Program; Admitting Provider Hospitalist; Emergency Provider Internal Medicine; PCP Family Medicine; Visit Provider Internal Medicine
DX: R27.0 Ataxia, unspecified (principal); G44.209 Tension-type headache, unspecified, not intractable; D32.9 Benign neoplasm of meninges, unspecified; M79.7 Fibromyalgia; M06.9 Rheumatoid arthritis, unspecified; R07.9 Chest pain, unspecified; R00.1 Bradycardia, unspecified; R41.82 Altered mental status, unspecified; Z20.822 Contact with and (suspected) exposure to COVID-19; Z88.8 Allergy status to other drugs, medicaments and biological substances; Z79.82 Long term (current) use of aspirin; Z79.52 Long term (current) use of systemic steroids; Z79.899 Other long term (current) drug therapy
CPT/HCPCS: 36415; 70450; 70553; 71046; 80048; 80061; 81003; 82947; 83036; 83735; 84443; 84484; 85025; 87635; 92610; 93005; 96125; 96365; 96366; 96372; 96374; 96375; 97110; 97116; 97162; 97166; 97535; 99219; 99285; A9585; J2270

== ENCOUNTER 2021-07-26 12:34 | Outpatient (REF) | payer MEDICARE, MEDICAID, SELFPAY ==
--- NOTE | 2021-07-26 13:36 | MHC.AU.HAS ---
Hearing Aid Evaluation Date of Visit: 07/26/21 Historical Information: Description of Hearing: Right: Mild to severe sensorineural hearing loss; Left: Borderline-normal to moderately-severe sensorineural hearing loss Summary: Patient received medical clearance for hearing aids from ENT, Dr. Lemus. She reports that she was at home one day and suddenly began hearing a loud, overwhelming, siren-like ringing in her right ear. She called 911. Emergency responders found that her blood pressure was dangerously high. Since that incident, the hearing has been worse in the right ear. She also experiences constant tinnitus in the right ear that varies in volume, but is generally not as loud as the initial incident. The tinnitus has been bothersome. She has also been having difficulty understanding speech during daily conversations. Hearing Aid Prescription: Based on the individual?s shared listening needs, communication environments, dexterity, desire for connectivity, and personal preferences, the following prescription for amplification has been made: Right ear: Supervisor Extruding Department: [employer] Model: Audeo P70-R Battery Size: Rechargeable Color: Sand Beige Pull Socket Assembler: 1M Left ear: Supervisor Extruding Department: [employer] Model: Audeo P70-R Battery Size: Rechargeable Color: Sand Beige Pull Socket Assembler: 1M Action Taken/Action Needed: Hearing Instrument Fitting to be scheduled when materials arrive Primary Diagnosis: H90.3 Bilateral Sensorineural Hearing Loss Secondary Diagnosis: H93.11 Tinnitus, Right Ear Signature: Provider: Andrea Reddy, [facility]
== END 2021-07-26 12:35 | disposition home or self-care (01) ==
LOC: HO.HAP 12:34
PROVIDERS: Visit Provider Family Medicine
DX: Z46.1 Encounter for fitting and adjustment of hearing aid (principal); H90.3 Sensorineural hearing loss, bilateral; H93.11 Tinnitus, right ear
CPT/HCPCS: 92591

== ENCOUNTER 2021-08-08 12:54 | Outpatient (REF) | payer MEDICARE, MEDICAID, SELFPAY ==
--- NOTE | 2021-08-09 10:24 | MHC.AU.HFA ---
Hearing Instrument Fitting- Adult- Binaural Date of Visit: 08/08/21 Hearing Instruments Dispensed: Right Ear: Cdl Team Truck Driver: Phonak Model: Audeo P70-R Serial Number: [id number] Repair Warranty: 10/23/2024 Loss and Damage Warranty: 10/23/2024 Battery Size: Rechargeable Color: Sand Beige Glue Jointer Operator: 1M Type of Dome: Small Closed Dome Type of Wax Guard: CeruShield Left Ear: Cdl Team Truck Driver: Phonak Model: Audeo P70-R Serial Number: [id number] Repair Warranty: 10/23/2024 Loss and Damage Warranty: 10/23/2024 Battery Size: Rechargeable Color: Sand Beige Glue Jointer Operator: 1M Type of Dome: Small Open Dome Type of Wax Guard: CeruShield Summary of Fitting: Feedback clinical safety manager run. Verifit performed and levels adjusted to better reach targets. Patient felt 100% was too loud- lowered to 90% target. Patient was pleased with the sound of the instruments. With the hearing aids in, she reported she could not hear the tinnitus in her right ear. Hearing aid care and maintenance were discussed and practiced. The hearing aids were paired to her phone. The Flipaste sandor was taking a long time to download, and patient's son needed to return to work. He reports he will install and set up the sandor later today. Recommendations:A hearing instrument follow-up was scheduled. Diagnosis Code(s): Primary Diagnosis: H90.3 Bilateral Sensorineural Hearing Loss Secondary Diagnosis: H93.11 Tinnitus, Right Ear Signature: Provider: Andrea Reddy, [facility]
== END 2021-08-08 12:55 | disposition home or self-care (01) ==
LOC: HO.HAP 12:54
PROVIDERS: Visit Provider Family Medicine
DX: Z46.1 Encounter for fitting and adjustment of hearing aid (principal); H90.3 Sensorineural hearing loss, bilateral; H93.11 Tinnitus, right ear
CPT/HCPCS: V5011; V5020; V5160; V5261

== ENCOUNTER 2021-08-28 11:16 | Outpatient (REF) | payer MEDICARE, MEDICAID, SELFPAY | END 2021-08-28 11:17 | disposition home or self-care (01) | LOC: HO.HAP 11:16 | PROVIDERS: Visit Provider Family Medicine | DX: Z13.89 Encounter for screening for other disorder (principal) ==

== ENCOUNTER 2021-10-05 19:42 | Emergency (ER) | payer MEDICARE, MEDICAID, SELFPAY ==
--- NOTE | ~2021-10-05 | XR_ITS ---
EXAMINATION: XR CHEST CLINICAL INFORMATION: Covid positive and dyspnea COMPARISON: Chest x-ray 09/12/2020 TECHNIQUE: Frontal view of the chest was obtained. FINDINGS: No airspace consolidation. No pleural effusion or pneumothorax. Normal cardiomediastinal silhouette and pulmonary vascularity. No evidence pulmonary edema. No acute osseous injury. XR/XR chest 1V IMPRESSION: No acute pulmonary process.
[2021-10-05 19:47] VITALS: BP 182/90; PULSE 75; O2SAT 100
[2021-10-05 20:15] VITALS: BP 164/66; PULSE 68; RESP 18; TEMP 37.1; O2SAT 98; BMI 26.4
--- NOTE | 2021-10-05 20:28 | PC.NURSE ---
spoke w pt's daughter, started on paxlovid this am by PCP. pt a&ox3, vss, O2 @ 98% on RA, pt reports some shortness of breath/headache/sore throat starting yesterday on her flight home from the [place]. program development specialist in room w pt. resp even and unlabored on ED arrival. pending ED provider.
--- NOTE | 2021-10-05 21:33 | ED_ITS ---
HPI - URI/Sore Throat General Chief Complaint: Upper Respiratory Symptoms Stated Complaint: covid + sob weakness and headache Time Seen by Provider: 10/05/21 21:18 Source: patient and director underwriter sales Mode of arrival: ambulatory Limitations: no limitations History of Present Illness HPI Narrative: 66 yo female with hx of meningioma, RA, fibromyalgia, has received 3 shots of COVID vaccine noted on airplane she felt burning in her throat and chest congestion/dyspnea - flying back [place] She tested positive for COVID this AM. started on paxlovid by PCP. She notes she feels short of breath. She has no had COVID yet. MD elicited complaint: sore throat and other (dyspnea) Pertinent past history: immunosuppression Onset (ago): day(s) (last night) Consistency: constant Severity: mild Description of mucous: clear Able to tolerate fluids by mouth: Yes Exacerbating factors: swallowing Relieving factors: nothing Context: recent travel (did travel from ) Associated symptoms: sore throat, cough and shortness of breath Treatments prior to arrival: other (took first dose of Paxlovid already ) Related Data Home Medications Medication Instructions Recorded Confirmed estradiol 0.01% (0.1 mg/gram) 1 g vaginal 3XW 08/13/20 08/13/20 vaginal cream etanercept 50 mg/mL (1 mL) 1 mg subcut Q2W 08/13/20 08/13/20 subcutaneous pen injector (Enbrel SureClick) folic acid 400 mcg tablet 0.8 mg PO DAILY 08/13/20 08/13/20 gabapentin 100 mg capsule 200 mg PO BEDTIME 08/13/20 08/13/20 methotrexate sodium (PF) 25 mg/mL 25 mg subcut Q7D 08/13/20 08/14/20 injection solution peg 400-propylene glycol 0.4 %-0.3 1 drp ophthalmic (eye) Q1H PRN Dry 08/13/20 08/13/20 % eye drops (Systane (propylene Eyes glycol)) prednisone 5 mg tablet 5 - 10 mg PO DAILY PRN Inflammation 08/13/20 08/13/20 Previous Rx's Medication Instructions Recorded acetaminophen 325 mg tablet 650 mg PO Q6H PRN Pain, Mild (Pain 08/15/20 Scale 1-3) #0 tabs amitriptyline 10 mg tablet 10 mg PO BEDTIME #30 tabs 08/15/20 aspirin 81 mg chewable tablet 81 mg PO DAILY #0 tabs 08/15/20 Allergies Allergy/AdvReac Type Severity Reaction Status Date / Time leflunomide [From ARAVA] Allergy Unknown UNK Verified 10/05/21 19:47 Review of Systems Review of Systems: Constitutional : No Fever, No Chills ENT/Mouth : pos sore throat, No Rhinorrhea, No Swallowing Difficulty Eyes: No Eye Pain, No Swelling, No Redness Cardiovascular : No Chest Pain, positive SOB, No Orthopnea, no Edema Respiratory : pos Cough, No Sputum, No Wheezing, positive dyspnea Gastrointestinal : No Nausea, No Vomiting, No Diarrhea, No abdominal Pain, No Hematochezia, No Melena Genitourinary : No Dysuria, No Urinary Frequency, No Hematuria Musculoskeletal : No joint pain, pos Myalgias Skin : No Skin Lesions, No rash Neuro : No Weakness, No Numbness, No Dizziness, pos Headache PMFSH Past Medical History Attestation statement: The following information was validated with the patient. Medical History Brain tumor Fibromyalgia Rheumatoid arthritis Social History Social History Household Members: Children Household Members Other:: daughter Housing: Condominium Do you presently have visiting nurse or other home services: No Alcohol intake: current Alcohol intake frequency: holidays/special occasions only Patient Tobacco Use Status: Never used Tobacco Advance Directives: Yes Advance Directives Information Provided: Yes Advance Directives on File: No service: No Physical Exam Vital Signs: Vital Signs: Last Vital Signs Temp 98.8 F 10/05/21 20:15 Pulse 68 10/05/21 20:15 Resp 18 10/05/21 20:15 BP 164/66 H 10/05/21 20:15 Pulse Ox 98 10/05/21 20:15 O2 Del Method 10/05/21 20:15 BMI result Body Mass Index 26.4 Appearance: Alert. Oriented X3. No acute distress. Eyes: Pupils equal, round and reactive to light. ENT: Pharynx normal. Neck: Normal inspection. Neck supple. CVS: Normal heart rate and rhythm. Pulses normal. Respiratory: No respiratory distress. Breath sounds normal. no splinting Abdomen: Soft and nontender. Skin: Skin warm and dry. Normal skin color. Normal skin turgor. Extremities: No lower extremity edema. No calf ttp no parisa's sign Neuro: Oriented X 3. No motor deficit. No sensory deficit. MDM - URI/Sore Throat MDM Narrative Medical decision making narrative: 66 yo female with hx of RA, meningioma s/p 3 COVID shots here with URI symptoms and feels short of breath. She has no tachycardia/hypoxia, no signs of DVT and n o pleuritic chest pain and it does not hurt to take a deep breath. She is known COVID positive and does not have COVID pneumonia. I do not suspect PE given lack of physical exam findings as well as no pleuritic chest pain/signs of DVT/tachycardia. She appears very comfortable watching TV. she is already on paxlovid at this time. Lab Data Labs: Lab Results 10/05/21 Range/Units 21:38 COVID-19 ([facility]OS[facility]) Positive A (Negative) COVID-19 Clin Com See Note Discharge Plan Discharge Clinical Impression: COVID-19 Patient Disposition: Home, Self-Care Instructions: COVID-19 (Coronavirus Disease 2019) (ED) Additional Instructions: return to ED for any worsening symptoms or concerns oxygen levels above 97% in ED if you become so short of breath you cannot walk to your own bathroom seek me dical care, if it hurts to breathe or you have chest pain seek medical care. CHEST xray TECHNIQUE: Frontal view of the chest was obtained. FINDINGS: No airspace consolidation. No pleural effusion or pneumothorax. Normal cardiomediastinal silhouette and pulmonary vascularity. No evidence pulmonary edema. No acute osseous injury. XR/XR chest 1V IMPRESSION: No acute pulmonary process. Prescriptions: No Action prednisone 5 mg tablet 5 - 10 mg PO DAILY PRN (Reason: Inflammation) gabapentin 100 mg capsule 200 mg PO BEDTIME estradiol 0.01 % (0.1 mg/gram) cream 1 g vaginal 3XW methotrexate sodium (PF) 25 mg/mL solution 25 mg subcut Q7D Enbrel SureClick 50 mg/mL (1 mL) pen injector 1 mg subcut Q2W Rx Instructions: patient was using 1 pen weekly but had to reduce dose to every other thursday after CBC drop folic acid 400 mcg Tablet 0.8 mg PO DAILY Systane (propylene glycol) 0.4-0.3 % Drops 1 drp OPHTHALMIC (EYE) Q1H PRN (Reason: Dry Eyes) acetaminophen 325 mg Tablet 650 mg PO Q6H PRN (Reason: Pain, Mild (Pain Scale 1-3)) Qty: 0 0RF aspirin 81 mg Tablet,Chewable 81 mg PO DAILY Qty: 0 0RF amitriptyline 10 mg tablet 10 mg PO BEDTIME Qty: 30 0RF Rx Instructions: just started medication on 08/12 after 1 year of being off it due to being stuck in [place] Print Language: Macedonian
[2021-10-05 21:58] LABS: COVID-19 Test Positive (Negative); IDNOW Serial# 08D9AD1C
== END 2021-10-05 22:35 | disposition home or self-care (01) ==
PROVIDERS: Emergency Provider Emergency Medicine; PCP Family Medicine
DX: U07.1 COVID-19 (principal)
CPT/HCPCS: 71045; 87635; 99282; 99283

== ENCOUNTER 2022-08-12 08:12 | Outpatient (REF) | payer MEDICARE, MEDICAID, SELFPAY | END 2022-08-12 08:13 | disposition home or self-care (01) | LOC: HO.HAP 08:12 | PROVIDERS: Visit Provider Family Medicine | DX: Z13.89 Encounter for screening for other disorder (principal) ==

== ENCOUNTER 2022-08-13 15:51 | Outpatient (REF) | payer MEDICARE, MEDICAID, SELFPAY | END 2022-08-13 15:52 | disposition home or self-care (01) | LOC: HO.HAP 15:51 | PROVIDERS: Visit Provider Family Medicine | DX: Z13.89 Encounter for screening for other disorder (principal) ==

== ENCOUNTER 2022-08-20 11:08 | Outpatient (REF) | payer MEDICARE, MEDICAID, SELFPAY | END 2022-08-20 11:09 | disposition home or self-care (01) | LOC: HO.HAP 11:08 | PROVIDERS: Visit Provider Family Medicine | DX: Z13.89 Encounter for screening for other disorder (principal) ==

== ENCOUNTER → 2022-09-12 13:55 | Outpatient (BNVA) | payer MEDICARE, MEDICAID, SELFPAY | PROVIDERS: PCP Family Medicine; Visit Provider Nurse Practitioner ==

== ENCOUNTER 2022-11-01 20:01 | Emergency (ER) | payer MEDICARE, MEDICAID, SELFPAY ==
[2022-11-01 20:21] VITALS: BP 147/61; PULSE 70; RESP 18; TEMP 36.9; O2SAT 96; BMI 24.4
[2022-11-01 22:17] VITALS: BP 146/62; PULSE 68; RESP 14; TEMP 36.9; O2SAT 99
--- NOTE | 2022-11-01 22:18 | PC.NURSE ---
Pt ca&ox4, no signs of distress. SPO. Pt denies sob or pain. Pt reports pruritus over entire body x3 days. Pt reports she tested + for covid on 10/22/22 and was placed on covid medication and told by her provider to stop all arthritis meds until covid meds finished. Pt has not restarted her meds. Pts daughter is at bedside will translate. Vitals stable. Plan of care ongoing.
[2022-11-01] MEDS: hydrOXYzine HCL 25 MG TABLET PO (22:58)
--- NOTE | 2022-11-01 23:04 | PC.NURSE ---
Pt medicated per may. Pt requested and given med crushed in pudding. Pts daughter remains at bedside. Patient tech Tanesha in to draw labs. Plan of care ongoing.
--- NOTE | 2022-11-01 23:04 | ED.GENADULT ---
HPI - General Adult General Chief complaint: Skin/Abscess/Foreign Body Stated complaint: covid+ 10/25 / rash on face Time Seen by Provider: 11/01/22 22:48 Source: patient and family Mode of arrival: ambulatory Limitations: no limitations History of Present Illness HPI narrative: 67-year-old female presents with generalized body itching and burning sensation. Symptoms started 3 days ago. Symptoms are severe. There is no clear relieving or exacerbating features. Prior treatment included hydrocortisone cream without improvement. She denies any rash, sore throat, difficulty swallowing, difficulty breathing, wheezing or stridor. She did recently have COVID infection which was started on October 22 no respiratory complaints at this time. Related Data Home Medications Medication Instructions Recorded Confirmed estradiol 0.01% (0.1 mg/gram) 1 g vaginal 3XW 08/13/20 08/13/20 vaginal cream folic acid 400 mcg tablet 0.8 mg PO DAILY 08/13/20 08/13/20 gabapentin 100 mg capsule 200 mg PO BEDTIME 08/13/20 08/13/20 peg 400-propylene glycol 0.4 %-0.3 1 drp ophthalmic (eye) Q1H PRN Dry 08/13/20 08/13/20 % eye drops (Systane (propylene Eyes glycol)) prednisone 20 mg tablet 20 mg PO DAILY PRN 09/12/22 upadacitinib 15 mg tablet,extended 15 mg PO DAILY 09/12/22 release 24 hr (Rinvoq) Previous Rx's Medication Instructions Recorded acetaminophen 325 mg tablet 650 mg PO Q6H PRN Pain, Mild (Pain 08/15/20 Scale 1-3) #0 tabs amitriptyline 10 mg tablet 10 mg PO BEDTIME #30 tabs 08/15/20 peg 3350-electrolytes 236 240 ml PO Q10M 1 day #4,000 mL 09/12/22 gram-22.74 gram-6.74 gram-5.86 gram solution (Golytely) hydroxyzine HCl 25 mg tablet 25 mg PO QID PRN itching #20 tabs 11/02/22 Allergies Allergy/AdvReac Type Severity Reaction Status Date / Time leflunomide [From ARAVA] Allergy Unknown UNK Verified 11/01/22 20:25 Review of Systems Review of Systems: CONSTITUTIONAL: Denies weight loss, fever and chills. HEENT: Denies changes in vision and hearing. RESPIRATORY: Denies SOB and cough. CV: Denies palpitations no CP. GI: Denies abdominal pain, nausea, vomiting and diarrhea. : Denies dysuria and urinary frequency. MSK: Denies myalgia and joint pain. SKIN: Denies rash and pruritus. NEUROLOGICAL: Denies headache and syncope. PSYCHIATRIC: Denies recent changes in mood. Denies anxiety and depression. All other ROS are negative unless in HPI PMFSH Past Medical History Medical History Brain tumor Fibromyalgia Rheumatoid arthritis Surgical History H/O brain surgery H/O eye surgery History of section History of cholecystectomy History of hysterectomy Hx of cataract surgery Social History Social History Household Members: Children Household Members Other:: daughter Housing: Condominium Do you presently have visiting nurse or other home services: No Alcohol intake: current Alcohol intake frequency: does not drink Patient Tobacco Use Status: Never used Tobacco Smoked in Last 30 Days: No Use of substances other than those prescribed or required for medical reasons: No Advance Directives: No Advance Directives Information Provided: Yes service: No Physical Exam ED Vital Signs: Vital Signs - 24 hr 11/01/22 20:21 11/01/22 22:17 11/01/22 23:05 Temperature 98.5 F 98.4 F 97.5 F Pulse Rate 70 68 66 Respiratory Rate 18 14 18 Blood Pressure 147/61 H 146/62 H 173/61 H Pulse Oximetry 96 99 98 Oxygen Delivery Method Room Air Room Air BMI result Body Mass Index 24.4 GEN: Well developed, no acute distress, alert, oriented HEENT: Normocephalic, atraumatic, normal external ears, nose appears normal Eyes: Normal to appearance Neck: Supple, no lymphadenopathy Respiratory: Talks in complete sentences, no respiratory distress Extremities: No clubbing cyanosis or edema Neurologic: No focal neurologic deficits, cranial nerves 2-12 intact, gait normal Skin: No rash Course Course Course Narrative: The workup is complete. There is no evidence of elevated bilirubin causing salt the position the skin for her pruritus. The rest of her labs do not show any acute significant abnormalities. There is no elevated eosinophil count. I will give the patient an additional dose of hydroxyzine and a dose of dexamethasone. I will discharge the patient follow-up with primary care provider. Additionally, she has a elevated blood pressure reading which needs close monitoring as well. Medications Administered Discontinued Medications Generic Name Dose Route Start Last Admin Trade Name Radha PRN Reason Stop Dose Admin Hydroxyzine HCl 25 mg 11/01/22 22:52 11/01/22 22:58 Hydroxyzine Hcl 25 Mg Tablet PO 11/01/22 22:53 25 mg ONCE ONE Administration Medical Decision Making Medical Decision Making [facility] Narrative: Patient presents with generalized pruritus and burning sensation in body. Differential diagnosis includes anxiety, stress, hyperbilirubinemia, allergic sensation, COVID related symptoms. Plan will be to check a CBC, CMP to rule out metabolic issues or to make sure that her eosinophil counts are normal. Will treat her with hydroxyzine for now as well. She Differential Diagnosis Differential Diagnoses: The differential diagnosis associated with the presentation includes (See above) Lab Data [facility] Lab Attestation statement: I reviewed the patient's lab results. 11/01/22 23:27 11/01/22 23:53 Labs: Lab Results 11/01/22 11/01/22 Range/Units 23:27 23:53 WBC 4.8 (4.8-10.8) X10*3/uL RBC 3.98 L (4.20-5.50) X10*6/uL Hgb 12.3 (12.0-16.0) g/dl Hct 36.9 L (37.0-47.0) % MCV 92.7 (80.0-98.0) fL MCH 30.9 (27.0-33.0) pg MCHC 33.3 (31.0-35.0) g/dl RDW 12.2 (11.0-16.0) % Plt Count 164 (160-400) X10*3/uL MPV 11.0 (9.4-12.3) fL Immature Gran % (Auto) 0.8 H (0.0-0.4) % Neut % (Auto) 60.5 (45-73) % Lymph % (Auto) 22.7 (20-40) % [place] % (Auto) 13.3 H (2-11) % Eos % (Auto) 2.3 (0-4) % Baso % (Auto) 0.4 (0-2) % Lymph # (Auto) 1.1 L (1.2-4.9) X10*3/uL [place] # (Auto) 0.6 (0.1-1.2) X10*3/uL Eos # (Auto) 0.1 (0.0-0.4) X10*3/uL Baso # (Auto) 0.0 (0.0-0.2) X10*3/uL Abs Immat Gran (auto) 0.04 H (0.00-0.03) X10*3/uL Absolute Neuts (auto) 2.9 (2.0-8.3) x10*3/uL Absolute Nucleated RBC 0.000 (0.0-0.012) X10*3/uL Nucleated RBC % (auto) 0.0 (0.0-0.2) /100WBC Sodium 141 (135-145) mmol/L Potassium 4.3 (3.3-5.1) mmol/L Chloride 107 (96-108) mmol/L Carbon Dioxide 27 (22-29) mmol/L Anion Gap 11 L (12-20) BUN 17 H (9-16) mg/dL Creatinine 0.81 (0.5-1.4) mg/dL Estim Creat Clear Calc 61.3 Estimated GFR > 60 Random Glucose 128 H (60-115) mg/dL Calcium 9.3 D (8.4-10.2) mg/dL Total Bilirubin 0.3 (0.0-1.0) mg/dL AST 46 H (5-31) U/L ALT 48 H (0-31) U/L Alkaline Phosphatase 83 (39-117) U/L Total Protein 6.6 (6.5-8.0) g/dL Albumin 3.8 (3.5-5.0) g/dL Independent Historian Clinical information obtained from an independent historian. History obtained from or confirmed by: Other (Child) Prescription Management I considered prescription management with: Other (Antihistamine) Discharge Plan Discharge Clinical Impression: Pruritus, Elevated blood pressure reading Patient Disposition: Home, Self-Care Instructions: Hypertension (ED), Itchy Skin (ED) Prescriptions: New hydroxyzine HCl 25 mg tablet 25 mg PO QID PRN (Reason: itching) Qty: 20 0RF No Action gabapentin 100 mg capsule 200 mg PO BEDTIME estradiol 0.01 % (0.1 mg/gram) cream 1 g vaginal 3XW folic acid 400 mcg Tablet 0.8 mg PO DAILY Systane (propylene glycol) 0.4-0.3 % Drops 1 drp OPHTHALMIC (EYE) Q1H PRN (Reason: Dry Eyes) acetaminophen 325 mg Tablet 650 mg PO Q6H PRN (Reason: Pain, Mild (Pain Scale 1-3)) Qty: 0 0RF amitriptyline 10 mg tablet 10 mg PO BEDTIME Qty: 30 0RF Rx Instructions: just started medication on 08/12 after 1 year of being off it due to being stuck in [place] peg 3350-electrolytes [Golytely] 236-22.74-6.74 -5.86 gram recon soln 240 ml PO Q10M 1 Days Qty: 4000 0RF Rx Instructions: until fecal effluent is clear; do not exceed a total volume of 2,000 mL prednisone 20 mg tablet 20 mg PO DAILY PRN Rinvoq 15 mg tablet extended release 24 hr 15 mg PO DAILY Referrals: Diane Ladd MD [Primary Care Provider] - 3 days (Follow-up regarding symptoms of itchiness as well as for elevated blood pressure readings) Print Language: Greek
[2022-11-01 23:05] VITALS: BP 173/61; PULSE 66; RESP 18; TEMP 36.4; O2SAT 98
[2022-11-01 23:32] LABS: MANUAL DIFF FLAG NO
[2022-11-01 23:33] LABS: Basophils Percent Auto 0.4 % (0-2); Eosinophils Absolute Auto 0.1 X10*3/uL (0.0-0.4); Eosinophils Percent Auto 2.3 % (0-4); Hematocrit 36.9 % (37.0-47.0); Hemoglobin 12.3 g/dl (12.0-16.0); Imm Gran Abs Auto 0.04 X10*3/uL (0.00-0.03); Imm Gran Pct Auto 0.8 % (0.0-0.4); Lymphocytes Absolute Auto 1.1 X10*3/uL (1.2-4.9); Lymphocytes Percent Auto 22.7 % (20-40); Mean Corpuscular HGB Conc 33.3 g/dl (31.0-35.0); Mean Corpuscular Hemoglobin 30.9 pg (27.0-33.0); Mean Corpuscular Volume 92.7 fL (80.0-98.0); Monocytes Absolute Auto 0.6 X10*3/uL (0.1-1.2); Monocytes Percent Auto 13.3 % (2-11); Neutrophils Absolute Auto 2.9 x10*3/uL (2.0-8.3); Neutrophils Percent Auto 60.5 % (45-73); Platelet Count 164 X10*3/uL (160-400); Red Blood Count 3.98 X10*6/uL (4.20-5.50); Red Cell Distribution Width 12.2 % (11.0-16.0); White Blood Count 4.8 X10*3/uL (4.8-10.8)
[2022-11-02 00:20] LABS: Alanine Aminotransferase 48 U/L (0-31); Albumin Level 3.8 g/dL (3.5-5.0); Alkaline Phosphatase 83 U/L (39-117); Anion Gap 11 (12-20); Aspartate Amino Transferase 46 U/L (5-31); Bilirubin Total 0.3 mg/dL (0.0-1.0); Blood Urea Nitrogen 17 mg/dL (9-16); Calcium 9.3 mg/dL (8.4-10.2); Carbon Dioxide 27 mmol/L (22-29); Chloride 107 mmol/L (96-108); Creatinine Clr Calc Pharmacy 61.3; Estimated Glomerular Filt Rate > 60; Glucose Random 128 mg/dL (60-115); Potassium 4.3 mmol/L (3.3-5.1); Sodium 141 mmol/L (135-145); Total Protein 6.6 g/dL (6.5-8.0)
[2022-11-02] MEDS: dexAMETHasone 6 MG TABLET PO (01:04)
[2022-11-02] MEDS: hydrOXYzine HCL 25 MG TABLET PO (01:04)
--- NOTE | 2022-11-02 01:08 | PC.NURSE ---
Pt ca&ox4, no signs of distress. Pt medicated per mar. Plan of care ongoing.
== END 2022-11-02 01:14 | disposition home or self-care (01) ==
PROVIDERS: Emergency Provider Emergency Medicine; PCP Family Medicine
DX: L29.9 Pruritus, unspecified (principal); R03.0 Elevated blood-pressure reading, without diagnosis of hypertension; Z86.16 Personal history of COVID-19
CPT/HCPCS: 36415; 80053; 85025; 99283; 99284; J8540

== ENCOUNTER 2022-12-16 10:11 | Day surgery (SDC) | payer MEDICARE, MEDICAID, SELFPAY ==
[2022-12-11 07:50] VITALS: BMI 24.8
--- NOTE | 2022-12-12 09:58 | HO.ANESPROP2 ---
Documented by User: Katy Monroy NP 12/12/22 10:01 HPI - Anesthesia Eval Consult details Narrative: 67yo F for Colonoscopy Prednisone 20mg daily prn (RA) PMFSH Active Problems Active Problems: All Active Problems (Updated 11/03/22 @ 00:00 by Zeenat Amado) Positive colorectal cancer screening using Cologuard test (Acute) Pre-op examination (Acute) Depression (Acute) Tinnitus (Acute) Secondary Sjogren's syndrome (Acute) Atrophic vaginitis (Acute) Nephrolithiasis (Acute) Osteoporosis (Acute) COVID-19 (Acute) Meningioma (Acute) Dizziness (Acute) Tension type headache (Acute) Ataxia (Acute) Past Medical History Medical History Rheumatoid arthritis Fibromyalgia Brain tumor Surgical History Surgical History Hx of cataract surgery H/O brain surgery H/O eye surgery History of cholecystectomy History of hysterectomy History of section Social History Social History Household Members: Children Household Members Other:: daughter Housing: Condominium Do you presently have visiting nurse or other home services: No Alcohol intake: current Alcohol intake frequency: does not drink Patient Tobacco Use Status: Never used Tobacco Use of substances other than those prescribed or required for medical reasons: No Are you DNR?: No Advance Directives: No Advance Directives Information Provided: Yes service: No Meds Allergies Allergy/AdvReac Type Severity Reaction Status Date / Time leflunomide [From ARAVA] Allergy Unknown UNK Verified 11/01/22 20:25 Home Medications Medication Instructions Recorded Confirmed Last Taken Type estradiol 0.01% (0.1 mg/gram) 1 g vaginal 3XW 08/13/20 12/16/22 08/12/20 History vaginal cream folic acid 400 mcg tablet 0.8 mg PO DAILY 08/13/20 12/16/22 08/12/20 History gabapentin 100 mg capsule 200 mg PO BEDTIME 08/13/20 12/16/22 08/12/20 History peg 400-propylene glycol 0.4 %-0.3 1 drp ophthalmic (eye) Q1H PRN Dry 08/13/20 12/16/22 08/13/20 History % eye drops (Systane (propylene Eyes glycol)) prednisone 20 mg tablet 20 mg PO DAILY PRN Pain 09/12/22 12/16/22 Unknown History upadacitinib 15 mg tablet,extended 15 mg PO DAILY 09/12/22 12/16/22 Unknown History release 24 hr (Rinvoq) Exam Exam Date and Time: December 12, 2022 0958 Height,Weight and Vital Signs: Height 5 ft 5 in Weight 67.585 kg Pertinent Lab Results Pertinent Lab Results: Laboratory Tests 11/01/22 11/01/22 11/01/22 23:27 23:53 23:53 WBC 4.8 Hgb 12.3 Hct 36.9 L Plt Count 164 Sodium 141 Potassium 4.3 Chloride 107 Carbon Dioxide 27 BUN 17 H Creatinine 0.81 Assessment and Plan Assessment Anesthesia Assessment: Chart Reviewed Documented by User: Dariana Hall MD 12/16/22 11:44 PMFSH Active Problems Active Problems: All Active Problems (Updated 12/16/22 @ 11:16 by Dariana Hall MD) Positive colorectal cancer screening using Cologuard test (Acute) Pre-op examination (Acute) Depression (Acute) Tinnitus (Acute) Secondary Sjogren's syndrome (Acute) Atrophic vaginitis (Acute) Nephrolithiasis (Acute) Osteoporosis (Acute) COVID-19 (Acute)- November 2022 H/o Meningioma (Acute)- excised Dizziness (Acute) Tension type headache (Acute) Ataxia (Acute) Rheumatoid arthritis Denies BRYN Past Medical History Medical History Rheumatoid arthritis Fibromyalgia Brain tumor Family History Family history of problems with anesthesia: No Surgical History Surgical History Hx of cataract surgery H/O brain surgery H/O eye surgery History of cholecystectomy History of hysterectomy History of section History of Problems with Anesthesia: Yes (Very uncomfortable with last colonoscopy 2011 but was under conscious sedation) Social History Social History Household Members: Children Household Members Other:: daughter Housing: Condominium Do you presently have visiting nurse or other home services: No Alcohol intake: current Alcohol intake frequency: does not drink Patient Tobacco Use Status: Never used Tobacco Use of substances other than those prescribed or required for medical reasons: No Are you DNR?: No Advance Directives: No Advance Directives Information Provided: Yes service: No Meds Allergies Allergy/AdvReac Type Severity Reaction Status Date / Time leflunomide [From ARAVA] Allergy Unknown UNK Verified 11/01/22 20:25 Home Medications Medication Instructions Recorded Confirmed Last Taken Type estradiol 0.01% (0.1 mg/gram) 1 g vaginal 3XW 08/13/20 12/16/22 08/12/20 History vaginal cream folic acid 400 mcg tablet 0.8 mg PO DAILY 08/13/20 12/16/22 08/12/20 History gabapentin 100 mg capsule 200 mg PO BEDTIME 08/13/20 12/16/22 08/12/20 History peg 400-propylene glycol 0.4 %-0.3 1 drp ophthalmic (eye) Q1H PRN Dry 08/13/20 12/16/22 08/13/20 History % eye drops (Systane (propylene Eyes glycol)) prednisone 20 mg tablet 20 mg PO DAILY PRN Pain 09/12/22 12/16/22 Unknown History upadacitinib 15 mg tablet,extended 15 mg PO DAILY 09/12/22 12/16/22 Unknown History release 24 hr (Rinvoq) Exam Height,Weight and Vital Signs: Height 5 ft 5 in Weight 67.585 kg Vital Signs Temp Pulse Resp BP Pulse Ox O2 Del Method 12/16/22 10:34 96.8 F 75 18 136/47 L 100 Room Air Airway Mallampati Class: III TM Dist: >3cm Neck ROM: Full Denture: Upper and Lower Heart: RRR Lungs: CTAB Assessment and Plan Assessment Anesthesia Assessment: Anesthesia Plan Discussed Final Anesthetic Review Family History of Problems with Anesthesia: No History of Problems with Anesthesia: Yes (Very uncomfortable with last colonoscopy 2011 but was under conscious sedation) NPO: Yes ASA Class: III Final Preanesthetic Review: No Changes in Pt Med Stat, Meds/Allgs Chart Reviewed, Consent Obtained/Reviewed and Anes Risks/Benef Reviewed Patient Risk: Intermediate Procedure Risk: Low Assessment/Block/Sedation in SS: Assess/Block/Sedation-SS Anesthetic Plan Anesthetic Plan: MAC: Disposition: Standard PACU
[2022-12-16 10:34] VITALS: BP 136/47; PULSE 75; RESP 18; TEMP 36; O2SAT 100; BMI 22.0
--- NOTE | 2022-12-16 11:59 | MHC.SHP ---
Pre-Procedural Eval Section A Date of Service: 12/16/22 Section B Chief Complaint: Positive cologuard Details of Present Illness: PMH: Rheumatoid arthritis Fibromyalgia syndrome Headaches Nephrolithiasis Osteoporosis Atrophic vaginitis Hearing loss/tinnitus Depression Surg hx: Cholecystectomy x4 Hysterectomy Cataract surgery Brain surgery Relevant Family History (Specify if Yes): No Relevant Social History: None Present Medications: see Short Stay Collaborative assessment Allergies: Allergies Allergy/AdvReac Type Severity Reaction Status Date / Time leflunomide [From ARAVA] Allergy Unknown UNK Verified 11/01/22 20:25 Review of Systems Review of Systems Comment: 10 point ROS negative Exam Exam Comment: Gen appear: No acute distress HEENT: no icterus Chest: No overt resp distress Abd: soft, nontender, nondistended Psych: Stable affect, answering questions appropriately Neuro: A/Ox3 noted to move all extremities spontaneously Ext: no peripheral edema Plan I have reviewed the history and physical and performed a pertinent physical examination on my patient. No changes have occurred unless specified. Time Spent With Patient Time: Total time managing care of this patient today ____ minutes.
--- NOTE | 2022-12-16 12:01 | W.PM.OPN ---
Operative Note Operative Note Date of Service: 12/16/22 Narrative: Procedure: Colonoscopy Indication: Positive cologuard test Endoscopist: Yohana Salamanca MD Anesthesia Provider: Izabella Romero CRNA Anesthesia type: MAC Instrument: Olympus [id number]-[id number] Consent: Indication, risks vs benefits, and alternatives were discussed with the patient who gave written informed consent to proceed. An general farmworker was utilized to assist with the consent. EKG, pulse, pulse oximetry and blood pressure were monitored throughout the procedure. Please see anesthesia flowsheet. Procedure: The patient was brought to the procedure room and placed in the left lateral decubitus position. IV medications were administered by the anesthesia provider in attendance. A digital rectal exam was performed which was normal. The colonoscope was then inserted through the anus and advanced through the colon to the cecum at 80 cm. The appendiceal orifice and ileocecal valve were identified. Mucosa was carefully examined under high definition white light as the instrument was slowly withdrawn in a retrograde panoramic fashion. Retroflexion was performed in rectum. The procedure was not difficult. There were no immediate obvious complications. The quality of the prep was BBPS: 3+2+3 = adequate Withdrawal time 12 minutes. Limitations: No limitations. Findings: Mucosa: Normal to cecum. Protruding lesions: 1 semi-pedunculated polyp of size 11 mm in ascending colon. Hot snare polypectomy was performed. The polyp was completely removed and retrieved. 1 sessile polyp of size 2 mm in ascending colon. Cold snare polypectomy was performed. The polyp was completely removed and retrieved. 2 sessile polyp of size 3-8 mm in transverse colon. Cold snare polypectomy was performed. The polyps were completely removed and retrieved. Large internal hemorrhoids without stigmata of recent bleeding. Excavated lesions: Diffuse diverticulosis of the whole colon. L>R. Impression: 1. Normal colon mucosa 2. Total of 4 polyps removed including 11mm polyp from ascending colon. 3. Internal hemorrhoids 4. Diverticulosis Recommendations: - Follow path results. - Repeat colonoscopy in 3 years if the largest polyp is an adenoma or if more than 3 polyps are adenomas.
[2022-12-16 13:03] VITALS: BP 138/69; PULSE 72; RESP 20; TEMP 36.1; O2SAT 96
[2022-12-16 13:20] VITALS: BP 164/68; PULSE 68; RESP 18; O2SAT 96
[2022-12-16 13:35] VITALS: BP 154/58; PULSE 71; RESP 14; TEMP 36.7; O2SAT 100
== END 2022-12-16 14:28 | disposition home or self-care (01) ==
PROVIDERS: PCP Family Medicine; Visit Provider Internal Medicine
PROC: 0DJD8ZZ Inspection of Lower Intestinal Tract, Via Natural or Artificial Opening Endoscopic (ICD-10-PCS; CPT 45378; principal; 2022-12-16 12:00)
DX: R19.5 Other fecal abnormalities (principal); D12.2 Benign neoplasm of ascending colon; D12.3 Benign neoplasm of transverse colon; K57.30 Diverticulosis of large intestine without perforation or abscess without bleeding; K64.8 Other hemorrhoids; M06.9 Rheumatoid arthritis, unspecified; M79.7 Fibromyalgia; M81.0 Age-related osteoporosis without current pathological fracture; Z88.8 Allergy status to other drugs, medicaments and biological substances; Z98.890 Other specified postprocedural states
CPT/HCPCS: 45385; 88305

== ENCOUNTER → 2022-12-16 10:11 | Outpatient (BNV) | payer MEDICARE, MEDICAID, SELFPAY | PROVIDERS: PCP Family Medicine; Visit Provider Internal Medicine | DX: Z12.11 Encounter for screening for malignant neoplasm of colon (principal); R19.5 Other fecal abnormalities; D12.2 Benign neoplasm of ascending colon; D12.3 Benign neoplasm of transverse colon; K64.8 Other hemorrhoids | CPT/HCPCS: 45385 ==

== ENCOUNTER 2022-12-30 11:50 | Outpatient (AMB) | payer MEDICARE, MEDICAID, SELFPAY ==
[2022-12-30 11:52] VITALS: BP 135/61; PULSE 72; O2SAT 97; BMI 24.9
--- NOTE | 2022-12-30 11:52 | A.OFFVIS_ITS ---
Intake Vital Signs 12/30/22 11:52 Height 5 ft 5 in Weight 149 lb 7.574 oz BMI 24.9 BP 135/61 Blood Pressure Location Rt brachial Position Sitting Pulse 72 Pulse Source Pulse Oximeter Pulse Oximetry (%) 97 Oxygen Delivery Method Room Air Intake Visit Reasons: S/p colon Cheikh Intake Note: Pt presents to the office today for a s/p Fertile. Pt states she has been feeling constipated for the past week. Pt states she does have a bowel movement each day but states it isn't as easy to expell. Pt denies any N/V/D. Accompanied by: Son Allergies leflunomide [From ARAVA] Allergy (Unknown, Verified 12/30/22 11:54) UNK HPI S/p colon Cheikh HPI Details Assessment & Plan (1) Pre-op examination: Code(s): Z01.818 - Encounter for other preprocedural examination Plan: [place]ran # dtr translates per pt request The patient recently had a positive Cologuard screening with her primary care office She has avoided colonoscopy over the years because when she had the procedure in 2011 she was completely awake and found it very painful it traumatized me I educate her that we do not use the same type of conscious sedation as in the past and I believe this will not be a problem this time. Again, she was not fully sedated at the last colonoscopy resulting in pt perceived trauma emotionally, no other problems with anesthesia or sedation known.. She denies any cardiac or respiratory problems NO ID problems There is no known FHX of CRC or polyps known. (2) Positive colorectal cancer screening using Cologuard test: Code(s): R19.5 - Other fecal abnormalities Medications: New peg 3350-electroly jerry 236-22.74-6.74 -5.86 gram (Golyt buck) until feca l effluent is juvencio r; do not exceed a total volume of 2 ,000 mL 240 mL PO Q10M 4,0 00 mL 0RF 1 day Z12.11 - Encounter for screening for malignant neoplas m of colo COLONOSCOPY 12/16/22 Findings: Mucosa: Normal to cecum. Protruding lesions: * 1 semi-pedunculated polyp of size 11 mm in ascending colon. Hot snare polypectomy was performed. The polyp was completely removed and retrieved. * 1 sessile polyp of size 2 mm in ascending colon. Cold snare polypectomy was performed. The polyp was completely removed and retrieved. * 2 sessile polyp of size 3-8 mm in transverse colon. Cold snare polypectomy was performed. The polyps were completely removed and retrieved. * Large internal hemorrhoids without stigmata of recent bleeding. Excavated lesions: * Diffuse diverticulosis of the whole colon. L>R. Impression: 1. Normal colon mucosa 2. Total of 4 polyps removed including 1 1mm polyp from ascending colon. 3. Internal hemorrhoids 4. Diverticulosis Recommendations: - Follow path results. - Repeat colonoscopy in 3 years if the l argest polyp is an adenoma or if more than 3 polyps are adenomas. BIOPSY Received: 12/16/22 Diagnosis A. Colon, transverse, polyps: Tubulovillous adenomas (multiple pieces involved, cannot evaluate margins); negative for high-grade dysplasia and carcinoma. B. Colon, labeled polyp 11 mm : Tubular adenoma; negative for high-grade dysplasia and carcinoma. C. Colon, ascending, polyp: Colonic mucosa with no specific change; negative for adenomatous dysplasia... TODAY'S VISIT Andorran # son translates per pt request (Durga) The procedure should be repeated in 1 years. She felt it went well and the procedure was not traumatizing for her. This is in contrast to the last colonoscopy when she was under sedated. Some CIC with straining and hard stools- recommend benefiber and WATER. . If this does not resolve the problem she should return to me promptly. The procedure was well tolerated. The results were explained and the patient is agreeable to the follow-up interval as stated. Education was provided to tell any 1st degree relatives about their findings to be sure that they are screened by age 45. Educated that they will be put on a recall list when it is time for their repeat scope but should they move out of state or away from the hospital they will need to remember along with their primary to repeat the procedure in a timely fashion to avoid any adverse complications. ROV 9 mos. PFSH Medical History Rheumatoid arthritis Fibromyalgia Brain tumor Surgical History Hx of cataract surgery H/O brain surgery H/O eye surgery History of cholecystectomy History of hysterectomy History of section Social History Household Members: Children Household Members Other:: daughter Housing: Condominium Do you presently have visiting nurse or other home services: No Alcohol intake: current Alcohol intake frequency: does not drink Patient Tobacco Use Status: Never used Tobacco service: No Review of Systems Const Denies fatigue, Denies fever(s), Denies night sweats, Denies poor appetite and Denies weight loss ENT Reports Normal hearing present, Denies dental pain, Denies dysphagia, Denies hearing loss, Denies mouth pain, Denies odynophagia, Denies throat swelling, Denies tongue swelling and Reports other (Dentition adequate) Card Reports no additional complaints Resp Reports no additional complaints GI Denies abdominal pain, Denies melena, Denies bloating, Denies hematochezia, Reports constipation, Denies GI cramping, Denies dysphagia, Denies excessive flatus, Denies early satiety, Denies heartburn, Denies diarrhea, Denies nausea, Denies odynophagia, Denies vomiting and Denies hematemesis Skin/Breast Denies pruritus, Denies lesions, Denies rash and Denies jaundice Neuro Reports Normal hearing present and Denies Abnormal speech present Endo Denies fatigue Aller/Immun Denies throat swelling and Denies tongue swelling Physical Exam Vital Signs: Last Vital Signs Pulse 72 12/30/22 11:52 BP 135/61 12/30/22 11:52 Pulse Ox 97 12/30/22 11:52 Oxygen Delivery Method Room Air 12/30/22 11:52 BMI result Body Mass Index 24.9 Const General: cooperative, no acute distress, well developed and well groomed Nutritional Appearance: average body habitus and well nourished Orientation/consciousness: oriented to person, oriented to place and oriented to time Limitations: language barrier HEENT Head: Yes normocephalic and Yes atraumatic Eyes General: appearance normal, both eyes and all related structures Pupils: Equal, round and reactive pupils present Neck Neck: Yes normal visual inspection and Yes no lymphadenopathy Thyroid: Thyroid normal Resp Effort & Inspection: normal respiratory effort and able to speak in complete sentences Auscultation: clear to auscultation bilaterally Cardio Rate: regular rate Rhythm: regular rhythm Heart sounds: Normal, physiologic split S2 sound present Peripheral pulses: radial pulses present and posterior tibial pulses present GI Inspection: No distended and No Abdominal panniculus present Palpation (GI): Soft to palpation, nontender, no guarding, not rigid and No hepatosplenomegaly present Percussion: Yes normal to percussion Auscultation: normal bowel sounds Rectal Exam - Female: deferred Skin General skin exam: no rashes or lesions noted, turgor normal, skin not dry, no jaundice, No spider nevi and no striae Rashes: no rashes Nails: normal Neuro General: oriented to person, oriented to place and oriented to time Cranial nerves: Yes Equal, round and reactive pupils present and Yes Normal hearing present Speech: No Abnormal speech present Extrem General: Yes normal to inspection, No clubbing, No cyanosis and No edema Psych Appearance: grossly normal and well kempt Mental Status: mental status grossly normal Speech and movement: Normal speech and movement present Affect: normal affect Attitude: cooperative Thought process: Normal thought process present and not confabulating Thought content: Normal thought content present Insight: Limited insight present (Psych) Judgement: Limited judgement present (Psych) Results Reviewed Results Reviewed: COLONOSCOPY 12/16/22 Findings: Mucosa: Normal to cecum. Protruding lesions: * 1 semi-pedunculated polyp of size 11 mm in ascending colon. Hot snare polypectomy was performed. The polyp was completely removed and retrieved. * 1 sessile polyp of size 2 mm in ascending colon. Cold snare polypectomy was performed. The polyp was completely removed and retrieved. * 2 sessile polyp of size 3-8 mm in transverse colon. Cold snare polypectomy was performed. The polyps were completely removed and retrieved. * Large internal hemorrhoids without stigmata of recent bleeding. Excavated lesions: * Diffuse diverticulosis of the whole colon. L>R. Impression: 1. Normal colon mucosa 2. Total of 4 polyps removed including 11mm polyp from ascending colon. 3. Internal hemorrhoids 4. Diverticulosis Recommendations: - Follow path results. - Repeat colonoscopy in 3 years if the largest polyp is an adenoma or if more than 3 polyps are adenomas. BIOPSY Received: 12/16/22 Diagnosis A. Colon, transverse, polyps: Tubulovillous adenomas (multiple pieces involved, cannot evaluate margins); negative for high-grade dysplasia and carcinoma. B. Colon, labeled polyp 11 mm : Tubular adenoma; negative for high-grade dysplasia and carcinoma. C. Colon, ascending, polyp: Colonic mucosa with no specific change; negative for adenomatous dysplasia... Coding Level of Care Code Est Pt Level 3 (89647)
== END 2022-12-30 12:19 | disposition home or self-care (01) ==
PROVIDERS: PCP Family Medicine; Visit Provider Nurse Practitioner
DX: K59.01 Slow transit constipation (principal); R19.5 Other fecal abnormalities
CPT/HCPCS: 99213

== ENCOUNTER → 2022-12-30 11:50 | Outpatient (BNVA) | payer MEDICARE, MEDICAID, SELFPAY | PROVIDERS: PCP Family Medicine; Visit Provider Nurse Practitioner | DX: D12.3 Benign neoplasm of transverse colon (principal); K63.5 Polyp of colon; K64.8 Other hemorrhoids; Z98.890 Other specified postprocedural states | CPT/HCPCS: 99212 ==

== ENCOUNTER 2023-09-02 08:03 | Outpatient (REF) | payer MEDICARE, MEDICAID, SELFPAY ==
--- NOTE | 2023-09-02 10:54 | MHC.AU.HA3 ---
Hearing Instrument Follow-Up- Binaural Date of Visit: 09/02/23 Right Ear: Eugene, Model, Color, Serial Number: Krystyna Arndt P70-R, #[id number] Pneumatic Tester Mechanic Repair Warranty: 10/23/2024 Pneumatic Tester Mechanic Loss and Damage Warranty: 10/23/2024 Battery Size: Rechargeable Power Regulator/Slim Tube: 1M Earmold/Dome/CShell/SlimTip:Small Closed Dome Type of Wax Guard: CeruShield Dispensed By: [facility] Date of Fittin08/08/2021 Left Ear: Eugene, Model, Color, Serial Number: Krystyna Arndt P70-R, #[id number] Pneumatic Tester Mechanic Repair Warranty: 10/23/2024 Pneumatic Tester Mechanic Loss and Damage Warranty: 10/23/2024 Battery Size: Rechargeable Power Regulator/Slim Tube: 1M Earmold/Dome/CShell/SlimTip: Small Open Dome Type of Wax Guard: CeruShield Dispensed By: [facility] Date of Fittin08/08/2021 Follow-Up Summary: Here with son. They report that she has been having trouble with the hearing aids due to buzzing in her ears. Asked if the buzzing only happens with hearing aids in, no the buzzing is worse with hearing aids out. Cleaned and checked aids, replaced domes and wax guards, vacuumed bárbara ports. Listening check positive. Increased gain from 95-100% and turned off frequency lowering. Improvement reported by patient. Advised change in tinnitus could be due to change in hearing, recommended new eval, last was in 2021. They will contact PCP for an order. Recommendations: Recommendations: Hearing instrument follow-up or maintenance as needed. Diagnosis Code(s): Primary Diagnosis: H90.3 Bilateral Sensorineural Hearing Loss Secondary Diagnosis: H93.13 Tinnitus, Bilateral Signature: Provider: Javier Dupont, [facility]
== END 2023-09-02 08:04 | disposition home or self-care (01) ==
LOC: HO.HAP 08:03
PROVIDERS: Visit Provider Family Medicine
DX: Z46.1 Encounter for fitting and adjustment of hearing aid (principal); H90.3 Sensorineural hearing loss, bilateral; H93.13 Tinnitus, bilateral
CPT/HCPCS: 92593; 99499

== ENCOUNTER 2023-10-30 09:22 | Outpatient (REF) | payer MEDICARE, MEDICAID, SELFPAY ==
--- NOTE | 2023-10-30 10:14 | MHC.AU.HA3 ---
Hearing Instrument Follow-Up- Binaural Date of Visit: 10/30/23 Right Ear: Eugene, Model, Color, Serial Number: Krystyna Arndt P70-R SN: [id number] Color: [place] Textile Screen Printer Repair Warranty: 10/23/2024 Textile Screen Printer Loss and Damage Warranty: USED [facility] Service Plan: 08/08/2022 Battery Size: Rechargeable Division Operations Specialist/Slim Tube: 1M Earmold/Dome/CShell/SlimTip:Small vented dome Type of Wax Guard: CeruShield Dispensed By: [facility] Date of Fittin08/08/2021 Left Ear: Eugene, Model, Color, Serial Number: Krystyna Arndt P70-R SN: [id number] Color: [place] Textile Screen Printer Repair Warranty: 10/23/2024 Textile Screen Printer Loss and Damage Warranty: 10/23/2024 [facility] Service Plan: 08/08/2022 Battery Size: Rechargeable Division Operations Specialist/Slim Tube: 1M Earmold/Dome/CShell/SlimTip: Small open dome Type of Wax Guard: CeruShield Dispensed By: [facility] Date of Fittin08/08/2021 Follow-Up Summary: Accompanied by sonDurga. Updated hearing test (see audio). Decrease noted .5-1 kHz, bilaterally. Need to reprogram hearing aids; however, lost right hearing aid. L&D form signed, faxed to [email or web address]. Will clean and check left hearing aid and reprogram both hearing aids once right replacement has arrived. Recommendations: Patient will be contacted when materials have arrived. Diagnosis Code(s): Primary Diagnosis: H90.3 Bilateral Sensorineural Hearing Loss Signature: Provider: Javier Whittington, [facility]
== END 2023-10-30 09:23 | disposition home or self-care (01) ==
LOC: HO.SH 09:22
PROVIDERS: Visit Provider Family Medicine
DX: Z01.118 Encounter for examination of ears and hearing with other abnormal findings (principal); H90.3 Sensorineural hearing loss, bilateral
CPT/HCPCS: 92557; 92567

== ENCOUNTER 2023-11-20 08:28 | Outpatient (REF) | payer MEDICARE, MEDICAID, SELFPAY ==
--- NOTE | 2023-11-20 09:04 | MHC.AU.HA3 ---
Hearing Instrument Follow-Up- Binaural Date of Visit: 11/20/23 Right Ear: Eugene, Model, Color, Serial Number: Krystyna Martello P70-R SN: [id number] Color: [place] Sterile Preparation Technician Repair Warranty: 10/23/2024 Sterile Preparation Technician Loss and Damage Warranty: USED [facility] Service Plan: 08/08/2022 Battery Size: Rechargeable Dairy Inspector/Slim Tube: 1M Earmold/Dome/CShell/SlimTip:Small vented dome Type of Wax Guard: CeruShield Dispensed By: [facility] Date of Fittin08/08/2021 Left Ear: Eugene, Model, Color, Serial Number: Krystyna Martello P70-R SN: [id number] Color: [place] Sterile Preparation Technician Repair Warranty: 10/23/2024 Sterile Preparation Technician Loss and Damage Warranty: 10/23/2024 [facility] Service Plan: 08/08/2022 Battery Size: Rechargeable Dairy Inspector/Slim Tube: 1M Earmold/Dome/CShell/SlimTip: Small open dome Type of Wax Guard: CeruShield Dispensed By: [facility] Date of Fittin08/08/2021 Follow-Up Summary: 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 Cleaned and checked left aid, replaced dome and wax guard, listening check positive. Aids connected to [employer]. Left needed firmware update, done. Adjusted both aids to newest audiogram. Vanessa reports good subjective comfort and benefit. Recommendations: Recommendations: Hearing instrument follow-up or maintenance as needed. Diagnosis Code(s): Primary Diagnosis: H90.3 Bilateral Sensorineural Hearing Loss Secondary Diagnosis: H93.13 Tinnitus, Bilateral Signature: Provider: Javier Dupont, [facility]
== END 2023-11-20 08:29 | disposition home or self-care (01) ==
LOC: HO.HAP 08:28
PROVIDERS: Visit Provider Family Medicine
DX: Z46.1 Encounter for fitting and adjustment of hearing aid (principal); H90.3 Sensorineural hearing loss, bilateral
CPT/HCPCS: 92593; 99499

== ENCOUNTER 2023-12-11 12:49 | Outpatient (REF) | payer SELFPAY | END 2023-12-11 12:50 | disposition home or self-care (01) | LOC: HO.HAP 12:49 | PROVIDERS: Visit Provider Family Medicine | DX: Z46.1 Encounter for fitting and adjustment of hearing aid (principal); H90.3 Sensorineural hearing loss, bilateral | CPT/HCPCS: V5267 ==

== ENCOUNTER 2024-11-12 21:13 | Emergency (ER) | payer MEDICARE, MEDICAID, SELFPAY ==
--- NOTE | ~2024-11-12 | CT_ITS ---
CLINICAL HISTORY: LUQ and LLQ pain CT abdomen and pelvis with contrast Comparison: CT - CT ABDOMEN PELVIS W IV CON - 11/13/24 01:21 EDT Indication: Left upper quadrant and left lower quadrant pain Findings: No consolidation or effusion. Pulmonary parenchyma is normal. Spleen is normal. Stomach is partially distended. Hepatic parenchyma is normal. Small hypodensities are present in the medial left liver and right posterior liver. Patient is status post cholecystectomy. Clips are present in the gallbladder fossa. Pancreas is normal. No peripancreatic fat stranding or ductal dilatation. Adrenal glands are normal. The left kidney is normal. No hydronephrosis or ureteral lithiasis. The right kidney demonstrates an exophytic upper pole cyst measuring 25 mm. No right ureteral lithiasis is present. Small bowel is normal. No focal dilatation. There is a moderate stool burden in the ascending and transverse colon. Retrocecal appendix is normal. There is scattered diverticulosis without evidence of diverticulitis. No focal wall thickening in the descending or sigmoid colon. No pneumatosis or pneumoperitoneum. Bladder is normal. No inguinal hernias No high-grade spinal canal or foraminal narrowing. No osseous lytic or sclerotic lesions. There is normal vascular enhancement. Vascular calcifications are present in the abdominal aorta No adenopathy. IMPRESSION: No acute intra-abdominal or pelvic findings. Diverticulosis without evidence of diverticulitis. Moderate stool burden No evidence of ureteral lithiasis.. This document has been electronically signed by: Nino Brooks III, MD PHD on 11/13/2024 04:09:30
[2024-11-12 21:21] VITALS: BP 147/67; PULSE 88; RESP 18; TEMP 36.4; O2SAT 98; BMI 27.6
[2024-11-12 21:42] LABS: MANUAL DIFF FLAG NO
[2024-11-12 21:43] LABS: Hematocrit 37.1 % (37.0-47.0); Hemoglobin 12.6 g/dl (12.0-16.0); Imm Gran Abs Auto 0.22 X10*3/uL (0.00-0.03); Imm Gran Pct Auto 2.7 % (0.0-0.4); Lymphocytes Absolute Auto 1.1 X10*3/uL (1.2-4.9); Mean Corpuscular HGB Conc 34.0 g/dl (31.0-35.0); Mean Corpuscular Hemoglobin 31.2 pg (27.0-33.0); Mean Corpuscular Volume 91.8 fL (80.0-98.0); NRBC Abs Auto 0.000 X10*3/uL (0.0-0.012); NRBC Pct Auto 0.0 /100WBC (0.0-0.2); Platelet Count 160 X10*3/uL (160-400); Red Blood Count 4.04 X10*6/uL (4.20-5.50); White Blood Count 8.1 X10*3/uL (4.8-10.8)
[2024-11-12 21:57] LABS: Alanine Aminotransferase 29 U/L (0-31); Albumin Level 3.8 g/dL (3.5-5.0); Alkaline Phosphatase 106 U/L (39-117); Anion Gap 11 (12-20); Aspartate Amino Transferase 23 U/L (5-31); Blood Urea Nitrogen 24 mg/dL (9-16); Calcium 8.7 mg/dL (8.4-10.2); Carbon Dioxide 25 mmol/L (22-29); Chloride 108 mmol/L (96-108); Creatinine Clr Calc Pharmacy 42.8; Estimated Glomerular Filt Rate 43; Lipase 47 U/L (8-78); Potassium 4.1 mmol/L (3.3-5.1); Sodium 140 mmol/L (135-145); Total Protein 6.5 g/dL (6.5-8.0)
--- OUTSIDE RECORDS SUMMARY | 2024-11-12 22:42 | XMS_ITS | Clinical Summary ---
Author Organization [facility] Address [address] [place] [phone] Phone Care Team Providers Care Project Admin Name Role Phone Diane Ladd MD Primary Care Provider [phone] Allergies Active Allergy Reactions Criticality Noted Date Comments Leflunomide Rash Low 01/09/2023 Medications Bacillus coagulans-inulin 1 billion-250 cell-mg Cap Take 250 mg by mouth daily. As needed Active acetaminophen (TYLENOL) 500 MG tablet Take 500 mg by mouth every 6 (six) hours as needed. Active calcium carbonate-vitami n D3 1,250 mg (500 mg elemental)-400 units per tablet Take 1 tablet by mouth daily. Active PEG 400-propylene glycol (SYSTANE) 0.4-0.3 % Drop Place 1 drop into each eye every hour as needed. Active folic acid (FOLVITE) 1 MG tablet Take 1 mg by mouth daily. Active meclizine (ANTIVERT) 12.5 mg tablet Take 12.5 mg by mouth as needed. 4 Active amitriptyline (ELAVIL) 10 MG tabletIndication s:Fibromyalgia Take 2 tablets (20 mg total) by mouth nightly at bedtime as needed (muscle pain). 180 tablet 2 4 Active gabapentin (NEURONTIN) 100 MG capsuleIndicatio ns:Fibromyalgia Take 3 capsules (300 mg total) by mouth 3 (three) times a day. 810 capsule 1 4 Active Additional Information Patient taking differently:300 mg Oral,(No frequency reported), 1 in am 2 at night, Reported on 10/31/2024 predniSONE (DELTASONE) 10 MG tabletIndication s:Rheumatoid arthritis involving multiple sites with positive rheumatoid factor TAKE 4 TABLETS ONCE A DAY NEEDED FOR 30 DAYS 120 tablet 1 4 Active tofacitinib 1 mg/mL SolnIndications: Rheumatoid arthritis involving multiple sites with positive rheumatoid factor Take 5 mg by mouth 2 (two) times a day. 300 mL 3 5 Active Additional Information Patient not taking.Reported on 10/31/2024 certolizumab pegol (CIMZIA STARTER KIT) 400 mg/2 mL (200 mg/mL x 2) SyKt subcutaneous syringeIndicatio ns:Rheumatoid arthritis involving multiple sites with positive rheumatoid factor Inject 2 syringes (400 mg) under the skin every 14 days for 3 doses at weeks 0,2, and 4. 6 mL 5 Active Active Problems Problem Noted Date Diagnosed Date Long-term current use of tofacitinib 09/19/2024 Assessment & Plan (10/25/2024 10:11 PM EDT): Carefully continue daily Xeljanz (tofacitinib) unless fevers, taking antibiotics or getting vaccination. Complete entire course of antibiotics and hold Xeljanz until at least 48 hours after last dose of antibiotic to make sure that infection does not recur. Monitor for abdominal pain, diarrhea, nausea, abnormal skin discoloration and return for monitoring lab work every 3 months-standing orders in [facility] Assessment & Plan (09/19/2024 10:22 AM EDT): Carefully continue daily Xeljanz (tofacitinib) unless fevers, taking antibiotics or getting vaccination. Complete entire course of antibiotics and hold Xeljanz until at least 48 hours after last dose of antibiotic to make sure that infection does not recur. Monitor for abdominal pain, diarrhea, nausea, abnormal skin discoloration and return for monitoring lab work every 3 months-standing orders in [facility] Dyslipidemia 09/19/2024 Assessment & Plan (10/25/2024 10:12 PM EDT): Follow Mediterranean diet and get baseline lipid profile for monitoring while on Jaret 2 inhibitor therapy . Assessment & Plan (09/19/2024 10:23 AM EDT): Follow Mediterranean diet and get baseline lipid profile for monitoring while on Jaret 2 inhibitor therapy . 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 Daily calcium and vitamin D supplementation. Regular weightbearing exercises. Fall prevention strategies. Monitor for multiple side effects including but not limited to mood swings, increased intraocular and systemic pressure, diabetes, osteoporosis, fluid retention, increased appetite, risk of infection, bruising, hair thinning etc. Assessment & Plan (09/19/2024 9:40 AM EDT): She is reminded to take it as infrequently as possible . Daily calcium and vitamin D supplementation. Regular weightbearing exercises. Fall prevention strategies. Monitor for multiple side effects including but not limited to mood swings, increased intraocular and systemic pressure, diabetes, osteoporosis, fluid retention, increased appetite, risk of infection, bruising, hair thinning etc. Assessment & Plan (01/07/2024 4:19 PM EDT): She is reminded to take it as infrequently as possible . Daily calcium and vitamin D supplementation. Regular weightbearing exercises. Fall prevention strategies. Monitor for multiple side effects including but not limited to mood swings, increased intraocular and systemic pressure, diabetes, osteoporosis, fluid retention, increased appetite, risk of infection, bruising, hair thinning etc. Rheumatoid arthritis involvi ng multiple sites with positive rheumatoid factor 01/14/2023 Assessment & Plan (10/25/2024 10:10 PM EDT): Recent severe flare triggered by COVID-19 infection at the beginning of October 2024 and need for prednisone 30 mg daily despite starting Xeljanz signifies its loss of benefit. I offered her change of biologic disease modifying drug to Cimzia (certolizumab) injected subcutaneously every 2 weeks 400 mg x 3 doses then continued either 400 mg every 4 weeks or 200 mg every 2 weeks. Due to highly elevated ESR and CRP I asked her to gently taper prednisone from 30 mg daily by 5 mg every 7 days starting from 10/24/2024 as tolerated. Once Cimzia approved by her insurance and delivered to her home she is asked to call for nurse appointment to have first dose injected in the office and monitored to make sure that she does not experience allergic reaction. Call if problems or questions. I requested a new set of lab work prior to next visit-standing orders in [facility]. Assessment & Plan (09/19/2024 10:20 AM EDT): Clinically low-grade thickening and tenderness across wrists and MCP joints, R>L Laboratory cruz as of labs from 06/23/2024 appears stable. She had to take prednisone for several days a week ago due to arthritis flare involving her wrists and hands mostly . I requested a new set of lab work today and prior to next visit-standing orders in [facility]. On her request I agreed to inject her right deltoid muscle with long-acting triamcinolone (Kenalog) Procedure: After an informed written consent, under sterile conditions I have injected 60 mg Kenalog into RIGHT DELTOID MUSCLE uneventfully. Details of post-procedure care were explained to the patient in the office and given in writing. Provider: Theresa Adam MD Patient: Vanessa Kari MELLOB: 1955 Date: 09/19/2024 Assessment & Plan (01/07/2024 4:16 PM EDT): Clinically and laboratory cruz as of labs from 09/15/2023 appears stable. She had to take prednisone for several days a week ago due to arthritis flare involving her hips . I requested a new set of lab work today and prior to next visit-standing orders in [facility]. I advised her to get yearly influenza vaccine 14 days prior to her travel to [facility] and hold Rinvoq for at least 7 days after vaccination to optimize benefit. On her request I agreed to inject her right deltoid muscle with long-acting triamcinolone (Kenalog) Procedure: After an informed written consent, under sterile conditions I have injected 80 mg Kenalog into RIGHT DELTOID MUSCLE uneventfully. Details of post-procedure care were explained to the patient in the office and given in writing. Provider: Theresa Adam MD Patient: Vanessa Pierce : 1955 Date: 01/07/2024 Assessment & Plan (09/15/2023 10:22 AM EDT): Seropositive rheumatoid arthritis well-controlled on daily Rinvoq. She has prednisone at home which she should only use for a flare. Sent her for some baseline labs today. Assessment & Plan (07/26/2023 8:18 PM EDT): Seropositive rheumatoid arthritis currently in a flare with warm synovitis and swelling. Continue with current medications. Gave her an intramuscular injection of triamcinolone 80 mg which should take down her stiffness and swelling. Assessment & Plan (05/28/2023 9:17 AM EDT): Seropositive RA well-controlled on daily Rinvoq with no active synovitis or swelling. She has chronic joint deformities in the hands but is doing well otherwise. She has not needed to use prednisone in quite a while. Sent her for some baseline labs today. Assessment & Plan (01/14/2023 9:25 AM EST): Seropositive rheumatoid arthritis currently stable on daily Rinvoq and as needed prednisone. She is going through a small flare currently but with minimal synovitis. Gave her an intramuscular injection of triamcinolone 80 mg to relieve this flare. Sent her for some baseline labs today including hep B, C and QuantiFERON gold. Sent in refills for all of her meds. Primary osteoarthritis involving multiple joints 01/14/2023 Assessment & Plan (10/20/2024 9:47 AM EDT): Joint protection, energy conservation. Gentle, regular exercise routine. Avoid falls, injuries, overuse. Keep body weight in ideal range for her height. She may benefit from topical cream such as Arnica, Biofreeze, Aspercreme versus medicated patches such as salonpas, icy hot patch 2-3 times daily and if necessary at bedtime x 3 weeks. Assessment & Plan (09/19/2024 9:39 AM EDT): Joint protection, energy conservation. Gentle, regular exercise routine. Avoid falls, injuries, overuse. Keep body weight in ideal range for her height. She may benefit from topical cream such as Arnica, Biofreeze, Aspercreme versus medicated patches such as salonpas, icy hot patch 2-3 times daily and if necessary at bedtime x 3 weeks. Assessment & Plan (01/07/2024 3:43 PM EDT): Joint protection, energy conservation. Gentle, regular exercise routine. Avoid falls, injuries, overuse. Keep body weight in ideal range for her height. She may benefit from topical cream such as Arnica, Biofreeze, Aspercreme versus medicated patches such as salonpas, icy hot patch 2-3 times daily and if necessary at bedtime x 3 weeks. Assessment & Plan (09/15/2023 10:22 AM EDT): Osteoarthritis in multiple joints with no active swelling. She can continue with Tylenol 650 mg as needed. Assessment & Plan (05/28/2023 9:16 AM EDT): Osteoarthritis in multiple joints without swelling. She can continue with Tylenol 650 mg as needed. 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 She can continue with Tylenol 650 mg as needed. Fibromyalgia 01/14/2023 Assessment & Plan (10/25/2024 10:10 PM EDT): She reports occasional muscle soreness that responds to gabapentin 300 mg 3 times daily and amitriptyline 20 mg as needed nightly. Assessment & Plan (09/19/2024 9:39 AM EDT): She reports occasional muscle soreness that responds to gabapentin 300 mg 3 times daily and amitriptyline 20 mg as needed nightly. Assessment & Plan (01/07/2024 4:21 PM EDT): She reports occasional muscle soreness that responds to gabapentin 300 mg 3 times daily and amitriptyline 20 mg as needed nightly. Assessment & Plan (09/15/2023 10:23 AM EDT): Diffuse and occasionally symptomatic muscle pain from fibromyalgia. She can continue with gabapentin 200 mg at night as well as amitriptyline as needed. Assessment & Plan (05/28/2023 9:17 AM EDT): Diffuse muscle pain secondary to fibromyalgia currently stable on gabapentin 300 mg at night. Assessment & Plan (01/14/2023 9:27 AM EST): Diffuse muscle pain from fibromyalgia currently stable on gabapentin as needed. Resolved Problems Problem Noted Date Diagnosed Date Resolved Date skilled nursing current use of upadacitinib 01/07/2024 09/19/2024 Assessment & Plan (01/07/2024 4:18 PM EDT): Carefully continue daily Rinvoq unless fevers, taking antibiotics or getting vaccination. Complete entire course of antibiotics and hold Rinvoq until at least 48 hours after last dose of antibiotic to make sure that infection does not recur. Monitor for abdominal pain, diarrhea, nausea, abnormal skin discoloration and return for monitoring lab work every 3 months-standing orders in epic Encounters Date Type Department Care Team Description 11/02/2024 4:00 PM EDT Nurse Only [facility] Rheumatology [address] [place] [address] [place] [address] Theresa Adam MD Rheumatoid arthritis involving multiple sites with positive rheumatoid factor (Primary Dx) 11/02/2024 Telephone [facility] Rheumatology [address] [place] [address] [place] [address] Theresa Adam MD Appointment 10/31/2024 Telephone [facility] [address] [place] [address] Bhavana Hoagn [facility] Kel initial counseling 10/26/2024 Documentation [facility] [address] [place] [address] Merary Mancilla RPH 10/24/2024 Orders Only [facility] Rheumatology [address] [place] [address] Yaneli Friend MA Rheumatoid arthritis involving multiple sites with positive rheumatoid factor; 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 10/20/2024 9:30 AM EDT Telemedicine - audio only [facility] [address] [place] [address] Theresa Adam MD Rheumatoid arthritis involving multiple sites with positive rheumatoid factor (Primary Dx); Primary osteoarthritis involving multiple joints; Fibromyalgia; Long-term current use of tofacitinib; 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; Dyslipidemia 10/20/2024 Telephone [facility] Rhe[facility]ology [address] [place] [address] Theresa Adam MD Labs 10/19/2024 Orders Only [facility] [address] [place] [address] Theresa Adam MD Rheumatoid arthritis flare (Primary Dx) 09/20/2024 8:07 AM EDT - 09/20/2024 11:59 PM EDT Hospital Encounter [facility] [address] [place] [address] Theresa Adam MD Discharge Disposition: Home or Self Care 09/19/2024 9:30 AM EDT Office Visit [facility]ology [address] [place] [address] [place] [address] Theresa Adam MD Rheumatoid arthritis involving multiple sites with positive rheumatoid factor (Primary Dx); Primary osteoarthritis involving multiple joints; Fibromyalgia; 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 Not on alec e 01/08/2023 Are you concerned about learning? Not on file 01/08/2023 No 01/08/2023 No 01/08/2023 Digital Access Answer Date Recorded No 01/08/2023 No 01/08/2023 Reliable internet access at home? Not on file 01/08/2023 Device with a working camera? Not on file Comments Unknown Sex and Gender Information Value Date Recorded Sex Assigned at Not on file Legal Sex Female 10:57 AM EDT Gender Identity Not on file Sexual Orientation Not on file Last Filed Vital Signs Vital Sign Reading Time Taken Comments Blood Pressure 128/68 09/19/2024 9:21 AM EDT Pulse 74 09/19/2024 9:21 AM EDT Temperature - - Respiratory Rate - - Oxygen Saturation 96% 09/19/2024 9:21 AM EDT Inhaled Oxygen Concentration - - Weight 71.7 kg (158 lb) 10/20/2024 9:27 AM EDT p atient reported Height 165.1 cm (5' 5 ) 10/20/2024 9:27 AM EDT Body Mass Index 26.29 10/20/2024 9:27 AM EDT Plan of Treatment Upcoming Encounters Date Type Department Care Team (Late st Contact Info) Description 12/01/2024 8:00 AM EDT Office Visit [facility] [address] [place] [address] Theresa Adam MD [address] [facility], [address] [address] [email or web address] Vanai Lomax, OT [address] [place] [address] [email or web address] 12/08/2024 11:45 AM EDT Office Visit [facility] [address] [place] [address] Theresa Adam MD [address] [facility], [address] [address] [email or web address] Vania Lomax, OT [address] [place] [address] [email or web address] 12/15/2024 8:00 AM EDT Office Visit [facility] [address] [place] [address] Theresa Adam MD [address] [place] [address], [address] [address] [email or web address] Vania Douglas, OT [address] [place] [address] [email or web address] 12/29/2024 8:30 AM EDT Office Visit [facility] [address] [place] [address] Theresa Adam MD [address] [place] [address], [address] [phone] [email or web address] Health Maintenance Due Date Last Done Comments Adult Td,Tdap Booster 1955 DEPRESSION SCREENING 1965 ZOSTER VACCINES (1 of 2) 01/22/1972 MAMMOGRAM 1993 COLOGUARD 1998 COLONOSCOPY 1998 COLORECTAL CANCER SCREENING 1998 FIT TEST 1998 FOBT 1998 SIGMOIDOSCOPY 1998 VIRTUAL COLONOSCOPY 1998 RSV VACCINE (1 - Risk 60-74 years 1-dose series) 2013 OSTEOPOROSIS SCREENING INITIAL (ONE-TIME) 2018 PNEUMOCOCCAL VACCINES (50+ years) (2 of 2 - PCV) 07/22/2023 07/21/2022 INFLUENZA VACCINE (#1) 2024 12/17/2016, 2013 COVID-19 VACCINE ( season) 2024 02/28/2022, 01/24/2021, 07/11/2020, Additional history exists LIPID PANEL 09/20/2029 09/20/2024 HEPATITIS C SCREENING Completed 01/14/2023 SMOKING STATUS SCREENING (Once After 26 Yrs) Completed 10/20/2024 HEPATITIS A VACCINES Aged Out No long er eligible based on patient's age to complete this topic HIB VACCINES Aged Out No longer eligi ble based on patient's age to complete this topic MENINGOCOCCAL VACCINES (ACWY) Aged Out No longer eligible based on patient's age to complete this topic MENINGOCOCCAL VACCINES (B) Aged Out N o longer eligible based on patient's age to complete this topic Medical Devices Not on file Procedures Procedure Name Priority Date/Time Associated Diagnosis Comments CBC AND DIFFERENTIAL Routine 10/19/2024 3:03 PM EDT Rheumatoid arthritis involving multiple sites with positive rheumatoid factor 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 SEDIMENTATION RATE (ESR) Routine 10/19/2024 3:03 PM EDT Rheumatoid arthritis involving multiple sites with positive rheumatoid factor skilled nursing current use of upadacitinib C-REACTIVE PROTEIN Routine 10/19/2024 3: 03 PM EDT Rheumatoid arthritis involving multiple sites with positive rheumatoid factor 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 COMPREHENSIVE METABOLIC PANEL Routine 10/19/2024 3:02 PM EDT Rheumatoid arthritis involving multiple sites with positive rheumatoid factor skilled nursing current use of upadacitinib LIPID PANEL Routine 09/20/2024 8:12 AM EDT Rheumatoid arthritis involving multiple sites with positive rheumatoid factor Long-term current use of tofacitinib Dyslipidemia COMPREHENSIVE METABOLIC PANEL Routine 09/20/2024 8:12 AM EDT Rheumatoid arthritis involving multiple sites with positive rheumatoid factor 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 C-REACTIVE PROTEIN Routine 09/20/2024 8: 12 AM EDT Rheumatoid arthritis involving multiple sites with positive rheumatoid factor skilled nursing current use of upadacitinib SEDIMENTATION RATE (ESR) Routine 09/20/2024 8:12 AM EDT Rheumatoid arthritis involving multiple sites with positive rheumatoid factor 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 Blood Theresa Adam MD LAB BLOOD ORDERABLES Fin al Result Performing Organization Address [facility] de Phone Number EXTERNAL NON-INTERFACED REF LAB * Sedimentation rate (ESR) (10/19/2024 3:03 PM EDT) Only the most recent of2 resultswithin the time period is included. Blood Theresa Adam MD LAB BLOOD ORDERABLES Fin al Result Performing Organization Address [facility] de Phone Number EXTERNAL NON-INTERFACED REF LAB * C-Reactive Protein (10/19/2024 3:03 PM EDT) Only the most recent of2 resultswithin the time period is included. Blood Theresa Adam MD LAB BLOOD ORDERABLES Fin al Result Performing Organization Address [facility] de Phone Number EXTERNAL NON-INTERFACED REF LAB * Comprehensive metabolic panel (10/19/2024 3:02 PM EDT) Only the most recent of2 resultswithin the time period is included. Blood Theresa Adam MD LAB BLOOD ORDERABLES Fin al Result Performing Organization Address [facility] de Phone Number EXTERNAL NON-INTERFACED REF LAB * (ABNORMAL) Lipid panel (09/20/2024 8:12 AM EDT) HDL 66 mg/dL [facility] Comment: Interpretation <40 mg/dL: Low HDL cholesterol (major risk factor for CHD) Greater than or equal to 60 mg/dL: High HDL cholesterol ( negative risk factor for CHD) HDL - cholesterol is affected by a number of factors, e.g. smoking, excerise, hormones, sex and age. CHOLESTEROL 236 0 - 240 mg/dL [facility] TRIGLYCERIDES 105 30 - 160 mg/dL [facility] LDL 149(H) 50 - 129 mg/dL [facility] Comment: LDL levels in terms of risk for coronary heart disease: <100 mg/dL: Optimal 100-129 mg/dL: Near or above optimal 130-159 mg/dL: Borderline high 160-189 mg/dL: High >190 mg/dL: Very High CARDIAC RISK RATIO 3.6 3.3 - 4.4 C [facility] Blood 09/20/2024 8:12 AM EDT 09/20/2024 8:18 AM EDT Theresa Adam MD LAB BLOOD ORDERABLES Fin al Result [address] [address] * Hepatitis C antibody, qualitative (01/14/2023 9:07 AM EST) HCV NON-REACTIV E NON-REACTI VE [facility] Blood 01/14/2023 9:07 AM EST 01/14/2023 9:10 AM EST Claudio Little MD LAB BLOOD ORDERABLES Fi nal Result Performing Organization Address [facility] Co de Phone Number [address] [address] from Last 3 Months or Most Recently Relevant to Health Maintenance Insurance [facility] MEDICARE PART A & B [facility] MEDICARE PART A & B MEDICARE PART A & B [facility] PART [facility] [place] MEDIC[facility] PART A & B [facility] A & B Care Teams Project Admin Relationship Specialty Start Date End Date Diane Ladd MD [address] [place] [address] PCP - General Family Medicine 11/04/22 Additional Source Comments The information contained in this document represents components of the legal health record. It is not the complete legal health record.[facility]
--- OUTSIDE RECORDS SUMMARY | 2024-11-12 22:42 | XMS_ITS | Clinical Summary ---
Author Organization [employer] Address [address] [place] [address] [address] [place] [address] Care Team Providers Care Practice Managers Name Role Phone Unavailable Primary Care Provider Unavailabl e Immunizations Immunization Administration Dates Next Due Pfizer Covid-19 Vaccine 12+ Bivalent 02/28/2022 Social History Tobacco Use Types Packs/Day Years Used Date Smoking Tobacco: Never Assessed Comments Unknown Sex and Gender Information Value Date Recorded Sex Assigned at Female 01/06/2022 10:22 AM EDT Legal Sex Female 10:22 AM EDT Gender Identity Not on file Sexual Orientation Not on file Plan of Treatment Health Maintenance Due Date Last Done Comments CT Colonography 1953 Colonoscopy 1953 Colorectal Cancer Screening 1953 Depression Screening 1953 FIT DNA/Cologuard 1953 FIT 1953 FOBT 1953 Lipid Panel 1953 SDOH Screening 1953 Sigmoidoscopy 1953 Alcohol/Substance Use Screening 1965 Tobacco Screening 1965 Hepatitis C Screening 1971 Mammogram 1993 Zoster Vaccines (1 of 2) 2003 Pneumococcal Vaccine: 50+ Years (2 of 2 - PCV) 09/07/2011 09/06/2010 DTaP/Tdap/Td Vaccines (2 - T d or Tdap) 09/06/2020 09/06/2010 COVID-19 Vaccine (2 - 2024-2 6 season) 2024 02/28/2022 Influenza Vaccine (#1) 2024 2, 12/03/2010 RSV Patients and Patients Aged 60 years or older (1 - 1-dose 75+ series) 01/22/2028 HIB Vaccines Aged Out No longer eligi ble based on patient's age to complete this topic HPV Vaccines Aged Out No longer eligi ble based on patient's age to complete this topic Hepatitis A Vaccines Aged Out No long er eligible based on patient's age to complete this topic Hepatitis B Vaccines Aged Out No long er eligible based on patient's age to complete this topic IPV Vaccines Aged Out No longer eligi ble based on patient's age to complete this topic Meningococcal B Vaccine Aged Out No l onger eligible based on patient's age to complete this topic Meningococcal Vaccine Aged Out No eddie gertrude eligible based on patient's age to complete this topic RSV under 20 months Aged Out No longe r eligible based on patient's age to complete this topic Rotavirus Vaccines Aged Out No longer eligible based on patient's age to complete this topic Insurance [place] [id number] [place] [address] [place] [id number]
--- OUTSIDE RECORDS SUMMARY | 2024-11-12 22:42 | XMS_ITS | Encounter Summary ---
Author Organization [facility] Address [address] [facility] [address] [id number] Phone Care Team Providers Care Process Control Manager Name Role Phone Diane Ladd MD Primary Care Provider [phone] Encounter Details Date Type Department Care Team (Late st Contact Info) Description 10/24/2024 Orders Only [facility] Rheumatology [address] [place] [address] Yaneli Friend MA [address] [place] [address] [email or web address] Rheumatoid arthritis involving multiple sites with positive rheumatoid factor; terminal gauger current use of upadacitinib Social History Tobacco Use Types Packs/Day Years Used Date Smoking Tobacco: Never Smokeless Tobacco: Never Alcohol Use Standard Drinks/Week Comments Yes 0 (1 standard drink = 0.6 oz pur e alcohol) rarely Education Answer Date Recorded Are you interested in more education? Not on alce e 01/08/2023 Are you concerned about learning? [...] on file Sexual Orientation Not on file documented as of this encounter Plan of Treatment Upcoming Encounters Date Type Department Care Team (Late st Contact Info) Description 12/01/2024 8:00 AM EDT Office Visit [facility] [address] [place] [address] Theresa Adam MD [address] [place] [phone] [email or web address] Vania Lomax, OT [address] [place] [phone] [email or web address] 12/08/2024 11:45 AM EDT Office Visit [facility] [address] [place] [address] Theresa Adam MD [address] [place] [phone] [email or web address] Vania Lomax, OT [address] [place] [phone] [email or web address] 12/15/2024 8:00 AM EDT Office Visit [facility] [address] [place] [address] Theresa Adam MD [address] [place] [phone] [email or web address] Vania Lomax, OT [address] [place] [phone] [email or web address] 12/29/2024 8:30 AM EDT Office Visit [facility] Rheumatology [address] [place] [address] Theresa Adam MD [address] [place] [phone] [email or web address] documented as of this encounter Procedures Procedure Name Priority Date/Time Associated Diagnosis Comments CBC AND DIFFERENTIAL Routine 10/19/2024 3:03 PM EDT Rheumatoid arthritis involving multiple sites with positive rheumatoid factor terminal gauger current use of upadacitinib SEDIMENTATION RATE (ESR) Routine 025 3:03 PM EDT Rheumatoid arthritis involving multiple sites with positive rheumatoid factor [facility] current use of upadacitinib C-REACTIVE PROTEIN Routine 10/19/2024 3: 03 PM EDT Rheumatoid arthritis involving multiple sites with positive rheumatoid factor terminal gauger current use of upadacitinib COMPREHENSIVE METABOLIC PANEL Routine 10/19/2024 3:02 PM EDT Rheumatoid arthritis involving multiple sites with positive rheumatoid factor terminal gauger current use of upadacitinib documented in this encounter Results * CBC and differential (10/19/2024 3:03 PM EDT) Blood us Theresa Adam MD LAB BLOOD ORDERABLES Fin al Result Performing Organization Address [facility] de Phone Number EXTERNAL NON-INTERFACED REF LAB * Sedimentation rate (ESR) (10/19/2024 3:03 PM EDT) Blood Result Wilder Adam MD LAB BLOOD ORDERABLES Fin al Result Performing Organization Address [facility] de Phone Number EXTERNAL NON-INTERFACED REF LAB * C-Reactive Protein (10/19/2024 3:03 PM EDT) Blood us Tehresa Adam MD LAB BLOOD ORDERABLES Fin al Result Performing Organization Address [facility] Co de Phone Number EXTERNAL NON-INTERFACED REF LAB * Comprehensive metabolic panel (10/19/2024 3:02 PM EDT) Blood us Theresa Adam MD LAB BLOOD ORDERABLES Fin al Result EXTERNAL NON-INTERFACED REF LAB documented in this encounter Visit Diagnoses Diagnosis Rheumatoid arthritis involving multiple sites with positive rheumatoid factor terminal gauger current use of upadacitinib documented in this encounter Care Teams Process Control Manager Relationship Specialty Start Date End Date Diane Ladd MD [address] [place] [address] PCP - General Family Medicine 11/04/22 documented as of this encounter Additional Source Comments The information contained in this document represents components of the legal health record. It is not the complete legal health record.[facility]
[2024-11-12 22:43] VITALS: BP 130/50; PULSE 75; RESP 16; TEMP 36.7; O2SAT 96
[2024-11-13 00:06] LABS: Appearance Urine Clear; Glucose Urine UA Negative (Negative); PH 7.0 (5.0-9.0); Specific Gravity - Urine 1.015 (1.005-1.025)
[2024-11-13 00:48] VITALS: BP 141/61; PULSE 67; RESP 18; TEMP 36.6; O2SAT 97
[2024-11-13] MEDS: iohexoL 350 MG/ML 100 ML INFUS..BTL 85 ML IV (01:41)
--- NOTE | 2024-11-13 02:10 | ED_ITS ---
HPI - Abdominal Pain General Chief Complaint: Abdominal Pain Stated Complaint: left side pain/feels like a mass/sob Time Seen by Provider: 11/12/24 23:08 Source: patient Mode of arrival: ambulatory Limitations: no limitations History of Present Illness ED Provider: Dr. Zayra Jackson HPI narrative: Patient comes to the emergency room complaining of 3-4 days of left upper quadrant left lower quadrant pain. Patient states it is worse with movement, denies any trauma, no falls or new exercises. In triage, patient reports some shortness of breath due to pain. Otherwise no shortness of breath. Patient denies any nausea vomiting or diarrhea. Related Data Home Medications ?Medication ?Instructions ?Recorded ?Confirmed estradiol 0.01% (0.1 mg/gram) 1 g vaginal 3XW 08/13/20 12/16/22 vaginal cream folic acid 400 mcg tablet 0.8 mg PO DAILY 08/13/2012/29 gabapentin 100 mg capsule 200 mg PO BEDTIME 08/13/20 1 peg 400-propylene glycol 0.4 %-0.3 1 drp ophthalmic (e ye) Q1H PRN Dry 08/13/20 12/16/22 % eye drops (Systane (propylene Eyes glycol)) prednisone 20 mg tablet 20 mg PO DAILY PRN Pain 09/2812/16/22 upadacitinib 15 mg tablet,extended 15 mg PO DAILY 09/2812/16/22 release 24 hr (Rinvoq) Previous Rx's ?Medication ?Instructions ?Recorded acetaminophen 325 mg tablet 650 mg (2 x 325 mg) PO Q6H PRN 08/15/20 Pain, Mild (Pain Scale 1-3) #0 tabs amitriptyline 10 mg tablet 10 mg PO BEDTIME #30 tabs 0 08/15/20 hydroxyzine HCl 25 mg tablet 25 mg PO QID PRN itching #20 tabs 11/02/22 cyclobenzaprine 5 mg tablet 10 mg (2 x 5 mg) PO TID MO N muscle 11/13/24 spasm #10 tabs ketorolac 10 mg tablet 10 mg PO Q8H #12 tabs Allergies Allergy/AdvReac Type Severity Reaction Status Date / Time leflunomide (From ARAVA) Allergy Unknown UNK Verified 09/06/25 21:25 Review of Systems Review of Systems Constitutional : No Weight loss, No Fever, No Chills, No Night Sweats, No Fatigue, No Malaise ENT/Mouth : No Hearing loss, No Ear Pain, No Nasal Congestion, No Sinus Pain, No Hoarseness, No sore throat, No Rhinorrhea, No Swallowing Difficulty Eyes: No Eye Pain, No Swelling, No Redness, No Foreign Body, No Discharge, No Vision Changes Cardiovascular : No Chest Pain, No SOB, No Dyspnea on Exertion, No Orthopnea, No Edema, No Palpitations Respiratory : No Cough, No Sputum, No Wheezing, No Smoke Exposure, No Dyspnea Gastrointestinal : No Nausea, No Vomiting, No Diarrhea, No Constipation, complaining of left upper quadrant and left lower quadrant pain Genitourinary : no irregular bleeding, No Dysuria, No Urinary Frequency, No Hematuria, No Urinary Incontinence, No Urgency, No Flank Pain, No Urinary Flow Changes, No Hesitancy Musculoskeletal : Flank pain on the left worse with movement, No joint pain, No Myalgias, No Joint Swelling Skin : No Skin Lesions, No rash Neuro : No Weakness, No Numbness, No Paresthesias, No Loss of Consciousness, No Dizziness, No Headache Psych : No Anxiety/Panic, No Depression, No SI/HI/AH/VH, No Social Issues, Heme/Lymph: No Bruising, No Bleeding,No Lymphadenopathy Endocrine : No Polyuria, No Polydipsia, No Temperature Intolerance PMFSH Past Medical History Medical History Rheumatoid arthritis Fibromyalgia Brain tumor Surgical History Hx of cataract surgery H/O brain surgery H/O eye surgery History of cholecystectomy History of hysterectomy History of section Social History Social History Household Members: Children Household Members Other:: daughter Housing: Condominium Do you presently have visiting nurse or other home services: No Alcohol intake: current Alcohol intake frequency: does not drink Patient Tobacco Use Status: Never used Tobacco Smoked in Last 30 Days: No Use of substances other than those prescribed or required for medical reasons: No Advance Directives: No Advance Directives Information Provided: No service: No Physical Exam ED Exam Exam: Appearance: Alert. Oriented X3. No acute distress. Eyes: Pupils equal, round and reactive to light. ENT: Pharynx normal. Neck: Normal inspection. Neck supple. No lymph nodes noted. No crepitus CVS: Normal heart rate and rhythm. Pulses normal. Normal S1 and S2 Respiratory: No respiratory distress. Breath sounds normal. No Wheezing. No rales Abdomen: Soft, did not seem to have significant pain to palpation, no flank pain. No rigidity. No distention. Skin: Skin warm and dry. Normal skin color. Normal skin turgor. Extremities: No lower extremity edema. No Lacerations. No Rash Neuro: Oriented X 3. No motor deficit. No sensory deficit. Moving all extremities. No slurred speech. CN 2 through 12 grossly intact Psych: calm, cooperative, normal affect Vital Signs: Vital Signs - 24 hr 11/12/24 21:21 11/12/24 22:43 11/13/24 00:48 Temperature 97.6 F 98.0 F 97.8 F Pulse Rate 88 75 67 Respiratory Rate 18 16 18 Blood Pressure 147/67 H 130/50 L 141/61 H Pulse Oximetry 98 96 97 Oxygen Delivery Method Room Air Room Air Room Air BMI result Body Mass Index 27.6 Medical Decision Making Medical Decision Making [facility] Narrative: My interpretation of labs: No significant abnormality in patient's hematology or chemistry, normal LFTs, normal lipase, urinalysis negative for UTI or blood CT scan of the abdomen/pelvis does not show any acute abnormality. Patient had a significant pain relief with Toradol. Most likely patient has a musculoskeletal pain. Patient requesting to have the same medication at home. Differential Diagnosis Differential Diagnoses: The differential diagnosis associated with the presentation includes (Ureterolithiasis, renal colic, pyelonephritis, splenomegaly) Admission/Observation Consideration of admission/observation: Escalation of care including admission/observation considered (Given patient's age and symptoms and level of discomfort on arrival, observation was considered) Lab Data [facility] Lab Attestation statement: I reviewed the patient's lab results. 11/12/24 21:34 11/12/24 21:34 Labs: Lab Results 11/12/24 11/12/24 Range/Units 21:34 23:56 WBC 8.1 (4.8-10.8) X10*3/uL RBC 4.04 L (4.20-5.50) X10*6/uL Hgb 12.6 (12.0-16.0) g/dl Hct 37.1 (37.0-47.0) % MCV 91.8 (80.0-98.0) fL MCH 31.2 (27.0-33.0) pg MCHC 34.0 (31.0-35.0) g/dl RDW 14.1 (11.0-16.0) % Plt Count 160 (160-400) X10*3/uL MPV 9.7 (9.4-12.3) fL Immature Gran % (Auto) 2.7 H (0.0-0.4) % Neut % (Auto) 72.2 (45-73) % Lymph % (Auto) 14.0 L (20-40) % [place] % (Auto) 9.2 (2-11) % Eos % (Auto) 1.7 (0-4) % Baso % (Auto) 0.2 (0-2) % Lymph # (Auto) 1.1 L (1.2-4.9) X10*3/uL [place] # (Auto) 0.8 (0.1-1.2) X10*3/uL Eos # (Auto) 0.1 (0.0-0.4) X10*3/uL Baso # (Auto) 0.0 (0.0-0.2) X10*3/uL Abs Immat Gran (auto) 0.22 H (0.00-0.03) X10*3/uL Absolute Neuts (auto) 5.9 (2.0-8.3) x10*3/uL Absolute Nucleated RBC 0.000 (0.0-0.012) X10*3/uL Nucleated RBC % (auto) 0.0 (0.0-0.2) /100WBC Sodium 140 (135-145) mmol/L Potassium 4.1 (3.3-5.1) mmol/L Chloride 108 (96-108) mmol/L Carbon Dioxide 25 (22-29) mmol/L Anion Gap 11 L (12-20) BUN 24 H (9-16) mg/dL Creatinine 1.22 (0.5-1.4) mg/dL Estim Creat Clear Calc 42.8 Estimated GFR 43 Random Glucose 116 H (60-115) mg/dL Calcium 8.7 D (8.4-10.2) mg/dL Total Bilirubin 0.2 (0.0-1.0) mg/dL AST 23 (5-31) U/L ALT 29 (0-31) U/L Alkaline Phosphatase 106 (39-117) U/L Total Protein 6.5 (6.5-8.0) g/dL Albumin 3.8 (3.5-5.0) g/dL Lipase 47 (8-78) U/L Urine Color Yellow Urine Appearance Clear Urine pH 7.0 (5.0-9.0) Ur Specific [place] 1.015 (1.005-1.025) Urine Protein Negative (Neg-Trace) mg/dL Urine Glucose (UA) Negative (Negative) mg/dL Urine Ketones Negative (Negative) mg/dL Urine Blood Negative (Negative) Urine Nitrite Negative (Negative) Ur Leukocyte Esterase Negative (Negative) Urine RBC 0-2 (0-2) /HPF Urine WBC 0-5 (0-5) /HPF Ur Squamous Epith Cells 0-2 (0-2) /HPF Urine Bacteria None Seen (None Seen) Hyaline Casts 0-2 (0-2) /LPF Independent Interpretation I performed an independent interpretation of an: CT Scan Radiology Impression Discussion of test interpretation with radiology: I have reviewed the radiologist's reading. Radiologist Impression: No consolidation or effusion. Pulmonary parenchyma is normal. Spleen is normal. Stomach is partially distended. Hepatic parenchyma is normal. Small hypodensities are present in the medial left liver and right posterior liver. Patient is status post cholecystectomy. Clips are present in the gallbladder fossa. Pancreas is normal. No peripancreatic fat stranding or ductal dilatation. Adrenal glands are normal. The left kidney is normal. No hydronephrosis or ureteral lithiasis. The right kidney demonstrates an exophytic upper pole cyst measuring 25 mm. No right ureteral lithiasis is present. Small bowel is normal. No focal dilatation. There is a moderate stool burden in the ascending and transverse colon. Retrocecal appendix is normal. There is scattered diverticulosis without evidence of diverticulitis. No focal wall thickening in the descending or sigmoid colon. No pneumatosis or pneumoperitoneum. Bladder is normal. No inguinal hernias No high-grade spinal canal or foraminal narrowing. No osseous lytic or sclerotic lesions. There is normal vascular enhancement. Vascular calcifications are present in the abdominal aorta No adenopathy. IMPRESSION: No acute intra-abdominal or pelvic findings. Diverticulosis without evidence of diverticulitis. Moderate stool burden No evidence of ureteral lithiasis.. Independent Historian Clinical information obtained from an independent historian. History obtained from or confirmed by: Other (Patient's daughter) Medications Administered Discontinued Medications Generic Name Dose Route Start Last Admin Trade Name Freq PRN Reason Stop Dose Admin Iohexol 85 ml 11/13/24 01:37 11/13/24 01:41 Iohexol 350 Mg/Ml 100 Ml Infus..Btl IV 11/13/24 01:38 85 ml ONCE ONE Administration Ketorolac Tromethamine 15 mg 11/13/24 02:48 11/13/24 02:54 Ketorolac Tromethamine 15 Mg/Ml Vial IVPUSH 11/13/24 02:49 15 mg ONCE ONE Administration Critical Care Time Critical Care Time Critical Care Time: Yes Total Critical Care Time: 35 Attestation: I have personally provided critical care time. Time includes review of lab data, radiology results, discussion with consultants, and monitoring for potential decompensation. Intervention performed as documented. Discharge Plan Discharge Clinical Impression: Left flank pain Patient Disposition: Home, Self-Care Instructions: Abdominal Pain (ED), Flank Pain (ED) Additional Instructions: Please follow-up with your primary care physician tomorrow. If you have any worsening or new symptoms, please return to the emergency room or call 911. Cyclobenzaprine is a medication that may make you feel drowsy. If you do take it, please tried to take it at bedtime when you are already in bed to avoid dizziness and falling Prescriptions: New ketorolac 10 mg tablet 10 mg PO Q8H Qty: 12 0RF Rx Instructions: Do not use Advil, naproxen, or any NSAIDs with this medication, only Tylenol if needed cyclobenzaprine 5 mg tablet 10 mg PO TID PRN (Reason: muscle spasm) Qty: 10 0RF Rx Instructions: This medication may make you feel drowsy No Action gabapentin 100 mg capsule 200 mg PO BEDTIME estradiol 0.01 % (0.1 mg/gram) cream 1 g vaginal 3XW folic acid 400 mcg Tablet 0.8 mg PO DAILY Systane (propylene glycol) 0.4-0.3 % Drops 1 drp OPHTHALMIC (EYE) Q1H PRN (Reason: Dry Eyes) acetaminophen 325 mg Tablet 650 mg PO Q6H PRN (Reason: Pain, Mild (Pain Scale 1-3)) Qty: 0 0RF amitriptyline 10 mg tablet 10 mg PO BEDTIME Qty: 30 0RF Rx Instructions: just started medication on 08/12 after 1 year of being off it due to being stuck in [place] hydroxyzine HCl 25 mg tablet 25 mg PO QID PRN (Reason: itching) Qty: 20 0RF prednisone 20 mg tablet 20 mg PO DAILY PRN (Reason: Pain) Rinvoq 15 mg tablet extended release 24 hr 15 mg PO DAILY Print Language: Danish
--- NOTE | 2024-11-13 02:56 | PC.NURSE ---
medicated per mar, pt awaiting CT Scan results.
--- NOTE | 2024-11-13 04:09 | PC.NURSE ---
several calls to radiology regarding results still pending. provider aware.
[2024-11-13 04:26] VITALS: BP 146/60; PULSE 66; TEMP 36.6; O2SAT 96
[2024-11-13 04:31] VITALS: BP 146/60; PULSE 66; RESP 15; TEMP 36.6; O2SAT 96
--- NOTE | 2024-11-13 04:31 | PC.NURSE ---
Iv removed, reviewed discharge instructions with pt. pt verbalized understanding,no sign of distress upon discharge.
== END 2024-11-13 04:33 | disposition home or self-care (01) ==
PROVIDERS: Emergency Provider Emergency Medicine; PCP Family Medicine
DX: R10.32 Left lower quadrant pain (principal)
CPT/HCPCS: 36415; 74177; 80053; 81001; 83690; 85025; 96374; 99284; 99285; J1885; Q9967

== ENCOUNTER → 2024-11-13 00:16 | Outpatient (BNV) | payer MEDICARE, MEDICAID, SELFPAY | PROVIDERS: Emergency Provider Emergency Medicine; PCP Family Medicine; Visit Provider Radiology Diagnostic Radiology | DX: K57.30 Diverticulosis of large intestine without perforation or abscess without bleeding (principal) | CPT/HCPCS: 74177 ==